=== PATIENT | male | born 1960 | race Caucasian/White ===

== ENCOUNTER 2020-03-26 09:07 | Emergency (ER) | payer OTHER, SELFPAY ==
[2020-03-26 09:10] VITALS: BP 176/87; PULSE 99; RESP 16; TEMP 36.4; O2SAT 100; BMI 42.2
--- NOTE | 2020-03-26 09:30 | ED.CHESTPAIN ---
HPI - Chest Pain General Chief Complaint: Chest Pain Stated Complaint: Dizzy/Anxious Time Seen by Provider: 03/26/20 09:20 Source: patient and family Mode of arrival: Ambulatory Limitations: no limitations History of Present Illness HPI narrative: 59-year-old male here for evaluation of what he thinks is a panic attack. Patient states he has never had a history of panic attacks or anxiety in the past. He states he went to bed last evening without any problems. Woke up this morning and his normal state health. 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 States that he was having some chest discomfort at the time but does not describe it as a pain. Potentially had some shortness of breath during the event but this has resolved. Had no nausea or vomiting. The time of my evaluation he states he feels much better but not completely back to normal again. Has not tried anything for symptoms prior to arrival. Related Data Home Medications Medication Instructions Recorded Confirmed cephalexin 500 mg PO QID 03/26/20 03/26/20 Allergies Allergy/AdvReac Type Severity Reaction Status Date / Time lisinopril Allergy Severe Cough Verified 03/26/20 09:28 Review of Systems Constitutional Constitutional: Denies fever(s) and Denies headache(s) ENT Ears, Nose, Mouth, and Throat: Denies headache(s) Cardiovascular Comments: Chest discomfort during his anxiety event earlier today Respiratory Comments: Shortness of breath during his anxiety event earlier today Gastrointestinal Gastrointestinal: Denies abdominal pain, Denies change in bowel habits, Denies diarrhea and Denies nausea Musculoskeletal Musculoskeletal: Denies arthralgias and Denies myalgias Integumentary/Breasts Skin/Breast: Denies rash Neurologic Neurologic: Denies headache(s) Psychiatric Psychiatric: Reports anxiety Hematologic/Lymphatic Hematologic/Lymphatic: Denies easy bleeding and Denies easy bruising Patient History Medical History Hypertension (Acute) Social History Smoking Status: Never smoker Smoking Status: Never smoker alcohol intake frequency: 0-2 drinks per day Substance Use Type: does not use Exam Initial Vital Signs Initial Vital Signs: Vital Signs Temperature 97.6 F 03/26/20 09:10 Pulse Rate 99 H 03/26/20 09:10 Respiratory Rate 16 03/26/20 09:10 Blood Pressure 176/87 H 03/26/20 09:10 Pulse Oximetry 100 03/26/20 09:10 Const General: cooperative, comfortable, well developed and well groomed Limitations: mental status not altered HENMT Head: normal to inspection and normocephalic Resp Effort & Inspection: normal respiratory effort Auscultation: clear to auscultation bilaterally Cardio Rate: regular rate Rhythm: regular rhythm GI Inspection: non-distended Palpation: soft and No tender Skin Lesions: no lesions Rashes: no rashes Neuro General: patient alert, patient awake and patient oriented x3 Cognition: normal cognition Speech: speech normal Extrem General: normal to inspection and capillary refill normal Psych Appearance: grossly normal and well kempt Scores GCS [place] coma scale eye opening: Spontaneous [place] coma scale verbal response: Orientated [place] coma scale motor response: Obey commands [place] coma scale total score: 15 HEART Score Heart Score history: Slightly Suspicious Heart Score EKG: Normal Heart Score Age: 45-64 years old Heart Score risk factors: 1-2 risk factors Heart Score troponin: < or = to normal limit Heart Score Total: 2 Course Orders Ordered: ED Orders 03/26/20 09:20 EKG-12 Lead Stat 03/26/20 09:52 Complete Blood Count AUTO DIFF Stat Comprehensive Metabolic Panel Stat Lipase Stat Troponin I Stat Vital Signs Vital signs: Vital Signs - 8 hr 03/26/20 09:10 Temperature 97.6 F Pulse Rate 99 H Respiratory Rate 16 Blood Pressure 176/87 H Pulse Oximetry 100 MDM - Chest Pain Lab Data Attestation: I reviewed the patient's lab results. Result diagrams: 03/26/20 09:52 03/26/20 09:52 Labs: Lab Results 03/26/20 03/26/20 Range/Units 09:52 09:52 WBC 6.1 (4.5-11.0) X10^3/uL RBC 4.31 L (4.5-5.9) X10^6/uL Hgb 13.2 L (13.5-17.5) g/dL Hct 38.4 L (41-53) % MCV 89.2 (80-100) fL MCH 30.7 (26-34) PG MCHC 34.4 (30-36) % RDW 13.4 (11.6-14.8) % Plt Count 168 (150-400) X10^3/uL Neut % (Auto) 77.9 H (50-75) % Lymph % (Auto) 14.9 L (25-40) % [place] % (Auto) 4.4 (3-14) % Eos % (Auto) 2.2 (2-4) % Baso % (Auto) 0.6 (0-2) % Neut # (Auto) 4700 (8029-2550) /uL Lymph # (Auto) 900 L (7703-5287) /uL [place] # (Auto) 300 (0-900) /uL Eos # (Auto) 100 (0-450) /uL Baso # (Auto) 0 (0-100) /uL Sodium 139 (137-145) mmol/L Potassium 4.4 (3.4-5.1) mmol/L Chloride 107 (98-107) mmol/L Carbon Dioxide 24 (22-32) mmol/L BUN 18 (9-20) mg/dL Creatinine 0.87 (0.66-1.25) mg/dL Estimated GFR > 60.0 (>60) mL/min BUN/Creatinine Ratio 20.7 (6-22) Glucose 109 H (70-100) mg/dL Calcium 9.2 (8.4-10.2) mg/dL Total Bilirubin 0.6 (0.2-1.3) mg/dL AST 30 (17-59) IU/L ALT 26 (<50) IU/L Alkaline Phosphatase 73 (38-126) U/L Troponin I < 0.012 (0.01-0.034) ng/mL Total Protein 7.4 (6.3-8.2) g/dL Albumin 4.4 (3.5-5.0) g/dL Globulin 3.0 (1.7-4.1) g/dL Albumin/Globulin Ratio 1.5 (1.0-2.8) Lipase 56 (23-300) U/L ECG Data Attestation: I personally reviewed and interpreted this ECG as follows: Prior ECG tracings: not available for review Interpretation: Sinus rhythm Ventricular rate of 91 Normal axis Normal QRS Normal QTC No ST T wave changes MDM Narrative Medical decision making narrative: Patient is a low risk heart score. Was slightly hypertensive which improved being here in the ER however rest of his vital signs are unremarkable. EKG is unremarkable. Low suspicion for ACS. Low suspicion for CVA. Nonfocal neurologic exam. Upon further questioning he did admit that last evening he drinks some wine which he normally does not do. He has no prior history of anxiety or panic attacks however his presenting symptoms today are fairly consistent with this. A long discussion with him and his at bedside regarding the situation. I feel we can hold on further workup for now. Patient is safe for discharge home. Will have him contact his primary provider for follow-up. He was given strict return precautions and follow-up instructions. He expressed understanding and agreement. Discharge Plan Departure Patient Disposition: Home Clinical Impression: Anxiety Instructions: DI for Anxiety -- Adult Activity Restrictions/Additional Instructions: Complete the antibiotics as directed. You have no restrictions on any of your activities. I do recommend that you refrain from drinking alcohol for the next 24-48 hours. Return to the emergency department for any new or worsening symptoms. Prescriptions: No Action cephalexin 500 mg capsule 500 mg PO QID RF: 0
[2020-03-26 10:00] VITALS: BP 174/78; PULSE 78; RESP 19; O2SAT 98
[2020-03-26 10:07] LABS: Add Manual Diff / Slide Review NO; Basophils Absolute Auto 0 /uL (0-100); Basophils Percent Auto 0.6 % (0-2); Eosinophils Absolute Auto 100 /uL (0-450); Eosinophils Percent Auto 2.2 % (2-4); Hematocrit 38.4 % (41-53); Hemoglobin 13.2 g/dL (13.5-17.5); Lymphocytes Absolute Auto 900 /uL (1100-4500); Lymphocytes Percent Auto 14.9 % (25-40); Mean Corpuscular HGB Conc 34.4 % (30-36); Mean Corpuscular Hemoglobin 30.7 PG (26-34); Mean Corpuscular Volume 89.2 fL (80-100); Monocytes Absolute Auto 300 /uL (0-900); Monocytes Percent Auto 4.4 % (3-14); Neutrophils Absolute Auto 4700 /uL (1500-7000); Neutrophils Percent Auto 77.9 % (50-75); Platelet Count 168 X10^3/uL (150-400); Red Blood Cell Count 4.31 X10^6/uL (4.5-5.9); Red Cell Distribution Width 13.4 % (11.6-14.8); White Blood Cell Count 6.1 X10^3/uL (4.5-11.0)
[2020-03-26 10:14] LABS: Alanine Aminotransferase 26 IU/L (<50); Albumin 4.4 g/dL (3.5-5.0); Albumin Globulin Ratio 1.5 (1.0-2.8); Alkaline Phosphatase 73 U/L (38-126); Aspartate Aminotransferase 30 IU/L (17-59); BUN Creatinine Ratio 20.7 (6-22); Bilirubin Total 0.6 mg/dL (0.2-1.3); Blood Urea Nitrogen 18 mg/dL (9-20); Calcium 9.2 mg/dL (8.4-10.2); Carbon Dioxide 24 mmol/L (22-32); Chloride 107 mmol/L (98-107); Estimated Glomerular Filt Rate > 60.0 mL/min (>60); Glucose 109 mg/dL (70-100); HEMOLYSIS < 15 (0-50); Lipase 56 U/L (23-300); Potassium 4.4 mmol/L (3.4-5.1); Sodium 139 mmol/L (137-145); Total Protein 7.4 g/dL (6.3-8.2)
[2020-03-26 10:26] LABS: Troponin I < 0.012 ng/mL (0.01-0.034)
[2020-03-26 10:30] VITALS: BP 166/82; PULSE 77; RESP 15; O2SAT 98
== END 2020-03-26 11:13 | disposition home or self-care (01) ==
PROVIDERS: Emergency Provider Emergency Medicine
DX: F41.9 Anxiety disorder, unspecified (principal); R06.02 Shortness of breath; R07.9 Chest pain, unspecified
CPT/HCPCS: 36415; 80053; 83690; 84484; 85025; 93005; 99284

== ENCOUNTER 2020-04-11 20:39 | Observation (INO) | payer OTHER, SELFPAY ==
[2020-04-11 20:53] VITALS: BP 207/96; PULSE 62; RESP 18; TEMP 36.8; O2SAT 97
--- NOTE | 2020-04-11 21:22 | ED.EXTPRO ---
HPI - Extremity Problem General Chief complaint: Neuro Symptoms/Deficit Stated complaint: numbnessleft side-knee, hand, foot, face Time Seen by Provider: 04/11/20 21:01 Source: patient Mode of arrival: Ambulatory Limitations: no limitations History of Present Illness HPI Narrative: 59-year-old male who denies any other medical problems here for evaluation of symptoms that initially occurred when he woke up this morning. Patient states that went to bed last evening feeling well. Woke up this morning with tingling in his left foot and on the outside of his left knee in in his left upper extremity and also tingling around the left side of his mouth. There is also some report spine the patient and his that this morning he was also having problems with how fast he was speaking. He states he was not slurring his words. Patient states that he knew what he wanted to say it just took him longer to say it. For the patient and his his symptoms have improved somewhat but not completely resolved. He denied any other associated symptoms. Has not tried anything for symptoms prior to arrival. Patient's said that the speaking issues that he had this morning are potentially not new for him. She states that when he drinks alcohol or is very tired he speaks slowly. Related Data Home Medications Medication Instructions Recorded Confirmed hydroxyzine HCl 25 mg PO DAILY PRN 04/11/20 04/11/20 atorvastatin 20 mg PO BEDTIME 04/12/20 04/12/20 Allergies Allergy/AdvReac Type Severity Reaction Status Date / Time lisinopril Allergy Severe Cough Verified 03/26/20 09:28 Review of Systems Constitutional Constitutional: Denies chills, Denies fatigue, Denies fever(s), Denies headache(s) and Denies weakness Eyes Eyes: Denies blurry vision, Denies change in vision and Denies diplopia ENT Ears, Nose, Mouth, and Throat: Denies vertigo, Denies dizziness, Denies headache(s), Denies disequilibrium, Denies sinus pain and Denies sore throat Cardiovascular Cardiovascular: Denies chest pain, Denies rapid heart rate and Denies dyspnea Respiratory Respiratory: Denies cough and Denies dyspnea Gastrointestinal Gastrointestinal: Denies abdominal pain, Denies change in bowel habits, Denies diarrhea, Denies nausea and Denies vomiting Genitourinary Genitourinary: Denies dysuria Genitourinary: Denies dysuria Musculoskeletal Musculoskeletal: Denies arthralgias, Denies myalgias and Reports tingling Integumentary/Breasts Skin/Breast: Denies lesions and Denies rash Neurologic Neurologic: Denies abnormal movements, Reports abnormal speech, Denies behavioral changes, Denies vertigo, Denies dizziness, Denies headache(s), Denies restless legs, Reports sensory deficit, Reports tingling, Denies disequilibrium and Denies weakness Psychiatric Psychiatric: Denies behavioral changes Endocrine Endocrine: Denies fatigue Hematologic/Lymphatic Hematologic/Lymphatic: Denies easy bleeding and Denies easy bruising Allergic/Immunologic Allergic/Immunologic: Denies urticaria Patient History Medical History Anxiety (Acute) Dyslipidemia (Acute) Hypertension (Acute) Surgical History History of hernia repair (Acute) History of tonsillectomy (Acute) Family History Father Leyva's disease Impaired vision Mother Cancer Brother Cancer Sister Myocardial infarction Son Asthma Social History household members: spouse and children Smoking Status: Never smoker alcohol intake: current Smoking Status: Never smoker alcohol intake frequency: 0-2 drinks per day Substance Use Type: marijuana Exam Initial Vital Signs Initial Vital Signs: Vital Signs Temperature 98.2 F 04/11/20 20:53 Pulse Rate 62 04/11/20 20:53 Respiratory Rate 18 04/11/20 20:53 Blood Pressure 207/96 H 04/11/20 20:53 Pulse Oximetry 97 04/11/20 20:53 Const General: cooperative, comfortable, well developed, well groomed and No acute distress Limitations: mental status not altered HENDE Head: normal to inspection and normocephalic Ears: hearing grossly normal bilaterally Eyes Pupils: PERRL EOM: EOM intact bilaterally Neck Neck: no meningeal signs Resp Effort & Inspection: normal respiratory effort Auscultation: clear to auscultation bilaterally Cardio Rate: regular rate Rhythm: regular rhythm GI Inspection: non-distended Palpation: soft, No firm and No tender Back/Spine/Pelvis Back: normal to inspection Skin Lesions: no lesions Rashes: no rashes Neuro General: patient alert, patient awake and patient oriented x3 Cognition: normal cognition Speech: speech normal Gait: normal gait Motor: muscle tone normal throughout Coordination: [id number] test normal Extrem General: normal to inspection and capillary refill normal Psych Appearance: grossly normal and well kempt Scores GCS [place] coma scale eye opening: Spontaneous [place] coma scale verbal response: Orientated [place] coma scale motor response: Obey commands [place] coma scale total score: 15 NIH Stroke Scale Level of Conciousness: Alert, keenly responsive Ask month/age: Answers both questions correctly. Open/close eyes, close hand: Performs both tasks correctly Best gaze horizontal: Normal Visual sharp: No visual loss Facial palsy: Normal symetrical movement Left arm drift: No drift for full 10 sec Right arm drift: No drift for full 10 sec Left leg drift: Drifts down, not to bed Right leg drift: No drift for full 10 sec Limb ataxia: Absent Sensory on face/arms/legs: Mild to moderate sensory loss, can tell touch Best language: No aphasia, normal Dysarthria: Normal Extinction or inattention: No abnormality Total NIH Stroke scale score: 2 Course Orders Ordered: ED Orders 04/11/20 21:23 CT head/brain wo con Stat EKG-12 Lead Stat 04/11/20 21:30 Complete Blood Count AUTO DIFF Stat Comprehensive Metabolic Panel Stat Ethanol (ETOH) Stat Lipase Stat Magnesium Routine Partial Thromboplastin Time Stat Prothrombin Time INR Stat Troponin I Stat 04/11/20 23:07 Consult to Discharge Planning Routine Consult to Occupational Therapy Evaluate & Treat Consult to Physical Therapy Evaluate & Treat MR stroke Stat Education, smoking cessation ONGOING 04/11/20 23:10 EC echo doppler complete Routine 04/12/20 05:00 Basic Metabolic Panel Routine Complete Blood Count AUTO DIFF Routine Hemoglobin A1C% w Est Avg Glu Routine Lipid Panel Routine Thyroid Stimulating Hormone Routine Acetaminophen (Tylenol) 650 mg PO Q6HR PRN PRN Reason: Fever/Mild Pain (1-3) Al Hydrox/Mg Hydrox/Simethicone (Maalox Plus) 30 ml PO Q6HR PRN PRN Reason: Dyspepsia Aspirin (Aspirin Ec) 81 mg PO DAILY [facility] Atorvastatin Calcium (Lipitor) 20 mg PO BEDTIME [facility] Bisacodyl (Dulcolax) 10 mg PO DAILY PRN PRN Reason: Constipation Calcium Carbonate (Tums) 1,000 mg PO Q4HR PRN PRN Reason: Dyspepsia Enoxaparin Sodium (Lovenox) 40 mg SUBCUT DAILY [facility] Hydroxyzine Pamoate (Vistaril) 25 mg PO DAILY PRN PRN Reason: Anxiety Sodium Chloride (Normal Saline 0.9%) 1,000 mls @ 75 mls/hr IV CONT [facility] Last Admin: 04/12/20 00:42 Dose: 100 mls/hr Documented by: PALOMO Naloxone HCl (Narcan) 0.2 mg IV Q2MIN PRN PRN Reason: Opiate Reversal Ondansetron HCl (Zofran) 4 mg IV Q8HR PRN PRN Reason: Nausea And Vomiting Discontinued Medications Aspirin (Aspirin Chew) 324 mg PO NOW ONE Stop: 04/11/20 22:45 Last Admin: 04/11/20 22:50 Dose: 324 mg Documented by: CASEY Atorvastatin Calcium (Lipitor) 20 mg PO BEDTIME [facility] Vital Signs Vital signs: Vital Signs - 8 hr 04/11/20 21:35 04/11/20 21:59 04/11/20 22:46 Pulse Rate 60 58 L 60 Respiratory Rate 18 18 18 Blood Pressure [Left Arm] 180/84 H 142/68 H 134/70 Pulse Oximetry 98 97 95 04/11/20 23:25 Pulse Rate 68 Respiratory Rate 18 Blood Pressure [Left Arm] 142/72 H Pulse Oximetry 96 MDM - Extremity (Nontraumatic) Lab Data Result diagrams: 04/11/20 21:30 04/11/20 21:30 Labs: Lab Results 04/11/20 04/11/20 04/11/20 Range/Units 21:30 21:30 21:30 WBC 5.6 (4.5-11.0) X10^3/uL RBC 4.52 (4.5-5.9) X10^6/uL Hgb 13.6 (13.5-17.5) g/dL Hct 40.1 L (41-53) % MCV 88.7 (80-100) fL MCH 30.0 (26-34) PG MCHC 33.8 (30-36) % RDW 13.4 (11.6-14.8) % Plt Count 155 (150-400) X10^3/uL Neut % (Auto) 66.7 (50-75) % Lymph % (Auto) 24.9 L (25-40) % [place] % (Auto) 5.8 (3-14) % Eos % (Auto) 2.0 (2-4) % Baso % (Auto) 0.6 (0-2) % Neut # (Auto) 3800 (0841-9364) /uL Lymph # (Auto) 1400 (9162-9629) /uL [place] # (Auto) 300 (0-900) /uL Eos # (Auto) 100 (0-450) /uL Baso # (Auto) 0 (0-100) /uL PT 11.9 (10.1-12.7) SECONDS INR 1.0 (0.9-1.3) APTT 34 (26.4-36.2) SECONDS Sodium 138 (137-145) mmol/L Potassium 3.9 (3.4-5.1) mmol/L Chloride 105 (98-107) mmol/L Carbon Dioxide 22 (22-32) mmol/L BUN 21 H (9-20) mg/dL Creatinine 0.77 (0.66-1.25) mg/dL Estimated GFR > 60.0 (>60) mL/min BUN/Creatinine Ratio 27.3 H (6-22) Glucose 131 H (70-100) mg/dL Calcium 9.1 (8.4-10.2) mg/dL Magnesium (1.6-2.3) mg/dL Total Bilirubin 0.6 (0.2-1.3) mg/dL AST 31 (17-59) IU/L ALT 23 (<50) IU/L Alkaline Phosphatase 60 (38-126) U/L Troponin I < 0.012 (0.01-0.034) ng/mL Total Protein 7.0 (6.3-8.2) g/dL Albumin 4.3 (3.5-5.0) g/dL Globulin 2.7 (1.7-4.1) g/dL Albumin/Globulin Ratio 1.6 (1.0-2.8) Lipase 48 (23-300) U/L Ethyl Alcohol ( - 10) mg/dL 04/11/20 04/11/20 Range/Units 21:30 21:30 WBC (4.5-11.0) X10^3/uL RBC (4.5-5.9) X10^6/uL Hgb (13.5-17.5) g/dL Hct (41-53) % MCV (80-100) fL MCH (26-34) PG MCHC (30-36) % RDW (11.6-14.8) % Plt Count (150-400) X10^3/uL Neut % (Auto) (50-75) % Lymph % (Auto) (25-40) % [place] % (Auto) (3-14) % Eos % (Auto) (2-4) % Baso % (Auto) (0-2) % Neut # (Auto) (2846-6202) /uL Lymph # (Auto) (8921-6785) /uL [place] # (Auto) (0-900) /uL Eos # (Auto) (0-450) /uL Baso # (Auto) (0-100) /uL PT (10.1-12.7) SECONDS INR (0.9-1.3) APTT (26.4-36.2) SECONDS Sodium (137-145) mmol/L Potassium (3.4-5.1) mmol/L Chloride (98-107) mmol/L Carbon Dioxide (22-32) mmol/L BUN (9-20) mg/dL Creatinine (0.66-1.25) mg/dL Estimated GFR (>60) mL/min BUN/Creatinine Ratio (6-22) Glucose (70-100) mg/dL Calcium (8.4-10.2) mg/dL Magnesium 2.0 (1.6-2.3) mg/dL Total Bilirubin (0.2-1.3) mg/dL AST (17-59) IU/L ALT (<50) IU/L Alkaline Phosphatase (38-126) U/L Troponin I (0.01-0.034) ng/mL Total Protein (6.3-8.2) g/dL Albumin (3.5-5.0) g/dL Globulin (1.7-4.1) g/dL Albumin/Globulin Ratio (1.0-2.8) Lipase (23-300) U/L Ethyl Alcohol < 10 ( - 10) mg/dL Imaging Data CT scan - head: Radiologist's Impression: [address] [address] [address] Scan Report Signed Patient: Sundeep Srinivasan WMR#: [id number] : 1960Acct:[id number] Age/Sex: 59 / MDate of Service: 04/11/20 Loc: ED Accession Number: [id number] Procedure: CT head/brain wo con Ordering Provider: Abelardo Lopez D.O. PROCEDURE: CT HEAD/BRAIN WO CON INDICATIONS: possible TIA TECHNIQUE: Noncontrast 4.5 mm thick angled axial sections acquired from the foramen magnum to the vertex, with coronal and sagittal reformats. For radiation dose reduction, the following was used: automated exposure control, adjustment of mA and/or kV according to patient size. COMPARISON: None. FINDINGS: Image quality: Excellent. CSF spaces: Basal cisterns are patent. No extra-axial fluid collections. Ventricles are normal in size and shape. Brain: No midline shift. No intracranial masses or hemorrhage. Green-white matter interface is normal. Skull and face: Calvarium and visualized facial bones are intact, without suspicious lesions. Sinuses: Visualized sinuses and mastoids are clear. IMPRESSION: No trauma, no evidence of stroke, no intracranial hemorrhage or mass is identified. Dictated by: Sharath Winters M.D. on 04/11/2020 at 21:49 Approved by: Sharath Winters M.D. on 04/11/2020 at 21:49 ECG Data Attestation EKG: I personally reviewed and interpreted this ECG as follows: Prior ECG tracings: not available for review Interpretation: Sinus bradycardia Ventricular rate of 54 Normal axis Normal QRS Normal QTC No ST T wave changes MDM Narrative Medical decision making narrative: Last known normal was last evening before he went to bed. Woke up this morning with his symptoms. Some of his symptoms have improved/resolved however still has some left-sided tingling. NIH score of 2. Head CT was unremarkable. Labs unremarkable. Discuss this with the patient. We did discuss CVA versus TIA. Patient not a candidate for tPA. Low suspicion for large vessel occlusion given his physical exam. Discussed the case with DOUG Early the night hospitalist who will admit for further evaluation and treatment. Discussed this with the patient. He expressed understanding and agreement. Discharge Plan Departure Patient Disposition: Admitted as Observation Clinical Impression: Transient cerebral ischemia Qualifiers: Transient cerebral ischemia type: unspecified Qualified Code(s): G45.9 - Transient cerebral ischemic attack, unspecified Hypertension Qualifiers: Hypertension type: unspecified Qualified Code(s): I10 - Essential (primary) hypertension Discharge Date/Time: 04/12/20 00:05 Admit Date/Time: 04/11/20 23:50 Admit Provider: Bobo Early
--- NOTE | 2020-04-11 21:23 | PC.NURSE ---
Reports feeling numbness in left upper lip, left fingers and left knee. Also reports feeling weaker in left knee. states his speech seemed/seems slow. Reports onset of symptoms at 0630 today upon awakening.
[2020-04-11 21:35] VITALS: BP 180/84; PULSE 60; RESP 18; O2SAT 98
[2020-04-11 21:58] LABS: Add Manual Diff / Slide Review NO; Basophils Absolute Auto 0 /uL (0-100); Basophils Percent Auto 0.6 % (0-2); Eosinophils Absolute Auto 100 /uL (0-450); Hematocrit 40.1 % (41-53); Hemoglobin 13.6 g/dL (13.5-17.5); Lymphocytes Absolute Auto 1400 /uL (1100-4500); Lymphocytes Percent Auto 24.9 % (25-40); Mean Corpuscular HGB Conc 33.8 % (30-36); Mean Corpuscular Volume 88.7 fL (80-100); Monocytes Absolute Auto 300 /uL (0-900); Monocytes Percent Auto 5.8 % (3-14); Neutrophils Absolute Auto 3800 /uL (1500-7000); Neutrophils Percent Auto 66.7 % (50-75); Platelet Count 155 X10^3/uL (150-400); Red Blood Cell Count 4.52 X10^6/uL (4.5-5.9); Red Cell Distribution Width 13.4 % (11.6-14.8); White Blood Cell Count 5.6 X10^3/uL (4.5-11.0)
[2020-04-11 21:59] VITALS: BP 142/68; PULSE 58; RESP 18; O2SAT 97
[2020-04-11 22:03] LABS: Prothrombin Time 11.9 SECONDS (10.1-12.7)
[2020-04-11 22:06] LABS: PTT Partial Thromboplastin Tim 34 SECONDS (26.4-36.2)
[2020-04-11 22:08] LABS: Ethanol (ETOH) < 10 mg/dL
[2020-04-11 22:09] LABS: Alanine Aminotransferase 23 IU/L (<50); Albumin 4.3 g/dL (3.5-5.0); Albumin Globulin Ratio 1.6 (1.0-2.8); Alkaline Phosphatase 60 U/L (38-126); Aspartate Aminotransferase 31 IU/L (17-59); BUN Creatinine Ratio 27.3 (6-22); Bilirubin Total 0.6 mg/dL (0.2-1.3); Blood Urea Nitrogen 21 mg/dL (9-20); Calcium 9.1 mg/dL (8.4-10.2); Carbon Dioxide 22 mmol/L (22-32); Chloride 105 mmol/L (98-107); Estimated Glomerular Filt Rate > 60.0 mL/min (>60); Globulin 2.7 g/dL (1.7-4.1); Glucose 131 mg/dL (70-100); HEMOLYSIS < 15 (0-50); Lipase 48 U/L (23-300); Potassium 3.9 mmol/L (3.4-5.1); Sodium 138 mmol/L (137-145)
[2020-04-11 22:20] LABS: Troponin I < 0.012 ng/mL (0.01-0.034)
[2020-04-11 22:46] VITALS: BP 134/70; PULSE 60; RESP 18; O2SAT 95
[2020-04-11] MEDS: ASPIRIN 81 MG CHEW TAB 324 MG PO (22:50)
--- NOTE | 2020-04-11 23:07 | DI.MRI.S_ITS ---
PROCEDURE: MR STROKE Pre- and post-contrast brain MRI, non-contrast brain MR angiogram, pre- and postcontrast neck MR angiogram INDICATIONS: Left-sided numbness and tingling TECHNIQUE: Brain: Noncontrast axial T1 spin echo, axial T2 fast spin echo, sagittal and axial FLAIR, coronal T2 fast spin echo, axial gradient echo, axial diffusion and ADC through the brain. After the administration of contrast, axial 3D VIBE of the cranial vasculature and brain. Brain MRA: Non-contrast 3-D time of flight MR angiogram, with multiple lklqxnn-qgujrcxle-pxwwqskjjc (MIP) reformats performed. Neck MRA: Axial and sagittal TruFISP through the neck. Coronal dynamic MR angiogram during administration of contrast in the arterial and venous phases, with 3-dimenstional lcoyzwp-dmxqcmkhy-hflhisenwy (MIP) reformats constructed from subtraction images. COMPARISON: [facility], CT, CT HEAD/BRAIN WO CON, 04/11/2020, 21:23. FINDINGS: Image quality: Diagnostic, with note made of motion artifact. BRAIN: CSF spaces: Ventricles are normal in size and shape. Basal cisterns are patent. No extra-axial fluid collections. Brain: There is abnormal diffusion weighted signal seen within the saadia, just to the right of the midline, as on series 20 images 57 and 58. There is associated dark signal seen on ADC maps. Developing increased T2-weighted signal can be seen at this site. No intracranial bleeds or mass effects. Green-white matter interface is normal. Mild brain parenchymal volume loss is seen in scattered foci of T2 weighted hyperintensity can be seen within the periventricular deep white matter. A few juxtacortical white matter foci are also seen. There is potential involvement of the undersurface of the corpus callosum. These foci do not enhance. Normal intravascular flow voids are present. No abnormal intracranial enhancement. Skull and face: Calvarial marrow signal is normal. Orbits appear normal. Sinuses: Sinuses and mastoids are clear. BRAIN MR ANGIOGRAM: Anterior circulation: Intracranial internal carotid arteries are normal in size and enhancement. The flow within the paired anterior cerebral arteries is normal and symmetric. The flow within the middle cerebral arteries is normal and symmetric. The anterior communicating artery is seen. No stenoses, occlusions, or aneurysms. Posterior circulation: The visualized portions of the vertebral arteries demonstrate normal caliber, and join to form a normal appearing basilar artery. The flow within the posterior cerebral arteries is normal and symmetric. No stenoses, occlusions, or aneurysms. NECK MR ANGIOGRAM: Carotids: Great vessels demonstrate a conventional anatomy as they arise from the aortic arch. The origins of the common carotid arteries appear patent. The calibers and courses of both common carotid arteries are normal. The bifurcation regions appear normal bilaterally. The internal carotid arteries demonstrate normal course and caliber. Posterior circulation: The origins of the vertebral arteries appear patent. More superior portions of both vertebral arteries demonstrate normal course and caliber, and join to form a normal appearing basilar artery. Miscellaneous: Subclavian arteries appear patent. Pre-contrast images through the neck show no soft tissue abnormalities. IMPRESSION: BRAIN MRI: There is a subacute infarction seen involving the right saadia near the midline. Numerous foci of T2 weighted hyperintensity can be seen within the white matter. Although in a male patient of this age chronic small vessel ischemia is considered to be less likely, please consider a demyelinating process, including multiple sclerosis. No masses or abnormal enhancement can be seen. BRAIN MR ANGIOGRAM: No significant intracranial arterial abnormality can be seen. NECK MR ANGIOGRAM: Within the arteries of the neck, no hemodynamically significant stenosis can be seen. Dictated by: Klever Pacheco M.D. on 04/12/2020 at 10:42 Approved by: Klever Pacheco M.D. on 04/12/2020 at 10:47
[2020-04-11 23:25] VITALS: BP 142/72; PULSE 68; RESP 18; O2SAT 96
--- NOTE | 2020-04-11 23:36 | PC.NURSE ---
The Hospitalist Edilson is in with his exam.
--- NOTE | 2020-04-12 00:02 | P.HP_ITS ---
History of Present Illness History of Present Illness Date Patient Seen: 04/11/20 Time Patient Seen: 23:45 Chief complaint: numbnessleft side-knee, hand, foot, face Narrative: Mr. Sundeep Srinivasan is a 59-year-old male with a past medical history significant for hypertension for which is no longer taking medication, hyperlipidemia on atorvastatin and anxiety who presents to the emergency department with left-sided numbness. The patient states that he was in his usual state health when he went to bed and woke this morning with left-sided tingling of his face, hand and leg. His also comments that he was slow to respond but had no difficulty word finding. She further states that he has had similar problems before when he is tired or have sad alcohol. Patient denies complaints of headaches or dizziness and has had visual changes. He reports no difficulty chewing or swallowing or problems with word finding. The patient was seen in the ER 2 weeks ago when kidney woke in the morning and developed anxiety and reported difficulties doing tasks with mid chest discomfort and possible associated shortness of breath. At that time he had no nausea vomiting no diaphoresis or headache. Of the aforementioned episode the patient has had no other complaints of pain or problems and has had no fevers or chills and denies any known COVID-19 exposures. Today he has had no complaints of chest pain or palpitations, shortness of breath cough or wheezing. He denies epigastric or abdominal pain and has had no nausea vomiting and denies constipation or diarrhea. Reports no difficulty with urination. Upon arrival to the ER the patient has a temperature 98.2? heart rate of 62, blood pressure 207/96, respirations of 18 saturating 97% on room air. A CT of the head is obtained finding no trauma, no evidence of stroke, intercerebral hemorrhage or mass. An EKG is obtained which finds sinus bradycardia with rate of 54 without ectopy or block, ischemia or infarct. On laboratory analyses white count of 5.6, hemoglobin 13.6, hematocrit of 40.1, platelets 155. He has a PT of 11.9 with an INR 1.0 and PTT of 34. His electrolytes are all within normal range and he has a BUN of 21 and creatinine 0.77. His BUN creatinine ratio of 27.3. His nonfasting blood sugar is 131. His liver functions are all within normal limits and his albumin is 4.3. His troponin is negative at less than 0.012 and alcohol is less than 10. Patient is given aspirin 324 mg in the ER and while there is numbness and tingling has been improving. The patient is admitted to the medicine service for further evaluation of TIA. Patient History Medical History Anxiety (Acute) Dyslipidemia (Acute) Hypertension (Acute) Surgical History History of hernia repair (Acute) History of tonsillectomy (Acute) Family & Social History Family History (Updated 04/12/20 @ 00:18 by DANIELLE Barber) Father Leyva's disease Impaired vision Mother Cancer Brother Cancer Sister Myocardial infarction Son Asthma Safety & Behavioral: Feels Safe in Current Yes Environment Tobacco & Substance use: Smoking Status Never smoker alcohol intake frequency 0-2 drinks per day Substance Use Type marijuana Comment: The patient is and lives in a single family home. 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 Alcohol: Patient endorses 1 drink every few weeks. Substance use: The patient endorses uses CBD cream that he applies to his knees. Advanced directives: In direct discussion with the patient he states his desire to be FULL CODE. He designates his Ashely Abbott to be his surrogate decision maker. Meds Home Medications and Allergies Home Medications Medication Instructions Recorded Confirmed Type hydroxyzine HCl 25 mg PO DAILY PRN 04/11/20 04/11/20 History atorvastatin 20 mg PO BEDTIME 04/12/20 04/12/20 History Allergies Allergy/AdvReac Type Severity Reaction Status Date / Time lisinopril Allergy Severe Cough Verified 03/26/20 09:28 Review of Systems Review of Systems ROS: Yes All systems reviewed with the patient and are negative except as otherwise documented Exam Vital Signs (past 8 hours): - 04/11/20 20:53 04/11/20 21:35 04/11/20 21:59 Temperature 98.2 F Pulse Rate 62 60 58 L Respiratory Rate 18 18 18 Blood Pressure 207/96 H Blood Pressure [Left Arm] 180/84 H 142/68 H Pulse Oximetry 97 98 97 04/11/20 22:46 04/11/20 23:25 Temperature Pulse Rate 60 68 Respiratory Rate 18 18 Blood Pressure Blood Pressure [Left Arm] 134/70 142/72 H Pulse Oximetry 95 96 Oxygen Delivery Method Room Air Narrative Exam Narrative: GENERAL APPEARANCE: well developed, obese male lying semi recumbent on stretcher in no acute distress. HEENT: Symmetrical facies, no ptosis, PERRLA, conjunctiva clear, sclerae anicteric, EOMs intact without nystagmus, no sinus tenderness to percussion, no rhinorrhea, mucous membranes are moist and pink without lesions or exudate. NECK/THYROID: neck supple, nontender, no JVD, no carotid bruit, no thyromegaly, trachea midline. LYMPH NODES: no cervical or supraclavicular lymphadenopathy. SKIN: [place], warm and dry, no visible lesions, rashes, ulcerations or petechiae. HEART: Bradycardic rate and regular rhythm, S1-S2, no murmur, no rubs or gallops, brisk capillary refill, no edema LUNGS: clear to auscultation bilaterally, no coarseness crackles or wheezing, no cough present CHEST: Symmetrical movement, no accessory muscle use, good tidal volume. ABDOMEN: Soft, obese, no epigastric or abdominal tenderness, no organomegaly, no flank tenderness, active bowel tones. EXTREMITIES: moves all extremities, strength is 5/5 and symmetrical, no deformities or joint effusions. NEUROLOGIC: AAO x4, cranial nerves II-XII grossly intact, NIH score is 1 for persistent altered sensation left finger tips, hearing grossly normal to speech. PSYCH: Reserved, flat affect, cooperative Objective Labs Result Diagrams: 04/11/20 21:30 04/11/20 21:30 Labs: Laboratory Results - last 24 hr 04/11/20 04/11/20 04/11/20 21:30 21:30 21:30 WBC 5.6 RBC 4.52 Hgb 13.6 Hct 40.1 L MCV 88.7 MCH 30.0 MCHC 33.8 RDW 13.4 Plt Count 155 Neut % (Auto) 66.7 Lymph % (Auto) 24.9 L [place] % (Auto) 5.8 Eos % (Auto) 2.0 Baso % (Auto) 0.6 Neut # (Auto) 3800 Lymph # (Auto) 1400 [place] # (Auto) 300 Eos # (Auto) 100 Baso # (Auto) 0 PT 11.9 INR 1.0 APTT 34 Sodium 138 Potassium 3.9 Chloride 105 Carbon Dioxide 22 BUN 21 H Creatinine 0.77 Estimated GFR > 60.0 BUN/Creatinine Ratio 27.3 H Glucose 131 H Calcium 9.1 Magnesium Total Bilirubin 0.6 AST 31 ALT 23 Alkaline Phosphatase 60 Troponin I < 0.012 Total Protein 7.0 Albumin 4.3 Globulin 2.7 Albumin/Globulin Ratio 1.6 Lipase 48 Ethyl Alcohol 04/11/20 04/11/20 21:30 21:30 WBC RBC Hgb Hct MCV MCH MCHC RDW Plt Count Neut % (Auto) Lymph % (Auto) [place] % (Auto) Eos % (Auto) Baso % (Auto) Neut # (Auto) Lymph # (Auto) [place] # (Auto) Eos # (Auto) Baso # (Auto) PT INR APTT Sodium Potassium Chloride Carbon Dioxide BUN Creatinine Estimated GFR BUN/Creatinine Ratio Glucose Calcium Magnesium 2.0 Total Bilirubin AST ALT Alkaline Phosphatase Troponin I Total Protein Albumin Globulin Albumin/Globulin Ratio Lipase Ethyl Alcohol < 10 Assessment & Plan Assessment & Plan narrative: This is a 59-year-old male patient who presents to the ER with left-sided numbness and tingling. He will with his symptoms his last known normal was when he went to bed last night. 1. TIA with left-sided numbness and tingling, present on admission, improving. -patient without prior symptoms of paresthesias, patient woke with symptoms, last known normal was yesterday evening. -per the patient's patient had delayed responses without difficulty word finding which may or may not be new but are no longer present. -per ER physician the patient walked with a limp on admission than on NIH testing at left leg drift but not down to bed. -patient has an NIH score of 1 for altered sensation persisting in the left bai nd. -in the ER the patient received aspirin 324 mg, continue aspirin 81 mg daily. -will obtain a hemoglobin A1c and TSH for risk stratification. -obtain MR stroke protocol in the a.m. -obtain echocardiogram in the a.m. -PT and OT requested to consult, evaluate and treat. 2. Essential hypertension, present on admission, active. -the patient has a past history of hypertension but states he was taking off medication because his blood pressure improved. He does not monitor his blood pressure at home. -on presentation to the ER his blood pressure is 207/96 which is improved to 140 2/72 without intervention. -the patient had a previous episode 2 weeks ago of anxiety with chest tightness, and denies chest pain shortness of breath or headache. -Will monitor blood pressure and treat as needed. 3. Dyslipidemia, chronic, stable -will continue patient's home regimen of atorvastatin 20 mg daily. 4. Obstructive sleep apnea on CPAP, chronic, stable. -the patient's is bring in his CPAP machine. -respiratory therapy to consult, evaluate and treat. 5. Anxiety, stable. -the patient presently calm and cooperative. -will continue patient's home regimen of hydroxyzine as needed. Isolation: None VTE prophylaxis: SCDs, enoxaparin. IV fluid: Normal saline at 75 cc/hour. Diet: Heart healthy low-sodiuM. Code status: FULL CODE, patient's is surrogate decision maker. The patient is admitted to the hospital with diet TIA requiring additional evaluation and monitoring. The patient is admitted as observation status with expected length of stay to be less than 2 midnights. COVID-19 COVID-19 status: Not tested Time Spent With Patient Time with patient: 25 - 35 minutes Scores GCS Pete coma scale eye opening: Spontaneous [place] coma scale verbal response: Orientated [place] coma scale motor response: Obey commands [place] coma scale total score: 15 NIHSS Level of Conciousness: Alert, keenly responsive Ask month/age: Answers both questions correctly. Open/close eyes, close hand: Performs both tasks correctly Best gaze horizontal: Normal Visual sharp: No visual loss Facial palsy: Normal symetrical movement Left arm drift: No drift for full 10 sec Right arm drift: No drift for full 10 sec Left leg drift: No drift for full 5 sec Right leg drift: No drift for full 5 sec Limb ataxia: Absent Sensory on face/arms/legs: Mild to moderate sensory loss, can tell touch Best language: No aphasia, normal Dysarthria: Normal Extinction or inattention: No abnormality Total NIH Stroke scale score: 1
[2020-04-12 00:22] VITALS: BMI 41.4
[2020-04-12] MEDS: SODIUM CHLORIDE 0.9% 1,000 ML 100 ML IV (00:42)
[2020-04-12 01:01] VITALS: BP 142/69; PULSE 56; RESP 18; TEMP 36.6; O2SAT 99
--- NOTE | 2020-04-12 02:23 | PC.ADMIT ---
[id number] Admission Note: The patient,Sundeep Srinivasan,59 y/o, was given written information regarding hospital policies, unit procedures and contact persons. Patient's smoking status: Never smoker. Vital Signs - 8 hr 04/11/20 20:53 04/11/20 21:35 04/11/20 21:59 Temperature 98.2 F Pulse Rate 62 60 58 L Respiratory Rate 18 18 18 Blood Pressure 207/96 H Blood Pressure [Left Arm] 180/84 H 142/68 H Pulse Oximetry 97 98 97 04/11/20 22:46 04/11/20 23:25 04/12/20 01:01 Temperature 97.8 F Pulse Rate 60 68 56 L Respiratory Rate 18 18 18 Blood Pressure 142/69 H Blood Pressure [Left Arm] 134/70 142/72 H Pulse Oximetry 95 96 99 Patient arrive @ 0015 accompanied by ED RN in W/C, transferred self to inpatient bed without difficulty. No recent fall hx, slightly hypertensive, bradycardiac on tele (VOUCHER EXAMINER Notified), all other systems WNL. Initiated home CPAP therapy, saturating WNL on RA. No c/o pain. Acknowledged all teaching. Bed alarm on and functioning, call light purpose and function explained, in reach.
[2020-04-12 05:00] VITALS: BP 126/69; PULSE 44; RESP 18; TEMP 36.6; O2SAT 99
[2020-04-12 07:40] VITALS: BP 136/78; PULSE 55; RESP 18; TEMP 37; O2SAT 100
[2020-04-12 07:53] LABS: Add Manual Diff / Slide Review NO; Basophils Absolute Auto 0 /uL (0-100); Basophils Percent Auto 0.8 % (0-2); Eosinophils Absolute Auto 200 /uL (0-450); Hematocrit 38.2 % (41-53); Hemoglobin 13.2 g/dL (13.5-17.5); Lymphocytes Absolute Auto 1100 /uL (1100-4500); Lymphocytes Percent Auto 22.9 % (25-40); Mean Corpuscular HGB Conc 34.6 % (30-36); Mean Corpuscular Hemoglobin 30.7 PG (26-34); Mean Corpuscular Volume 88.7 fL (80-100); Monocytes Absolute Auto 300 /uL (0-900); Monocytes Percent Auto 6.9 % (3-14); Neutrophils Absolute Auto 3300 /uL (1500-7000); Neutrophils Percent Auto 66.4 % (50-75); Platelet Count 152 X10^3/uL (150-400); Red Cell Distribution Width 13.2 % (11.6-14.8)
[2020-04-12] MEDS: ENOXAPARIN 40 MG/0.4 ML SYRINGE SUBCUT (08:00)
[2020-04-12] MEDS: ASPIRIN EC 81 MG TABLET PO (08:00)
[2020-04-12 08:31] LABS: BUN Creatinine Ratio 23.8 (6-22); Blood Urea Nitrogen 19 mg/dL (9-20); Calcium 9.3 mg/dL (8.4-10.2); Carbon Dioxide 23 mmol/L (22-32); Chloride 108 mmol/L (98-107); Cholesterol 221 mg/dL (140-199); Estimated Glomerular Filt Rate > 60.0 mL/min (>60); Glucose 98 mg/dL (70-100); HDL Cholesterol 49 mg/dL (40-60); HEMOLYSIS < 15 (0-50); LDL Cholesterol Calculated 149 mg/dL (<100); Sodium 137 mmol/L (137-145); Triglycerides 113 mg/dL (35-150)
[2020-04-12 08:37] LABS: Hemoglobin A1C% w Est Avg Glu 5.4 % (4.0-6.0)
[2020-04-12 09:50] LABS: Thyroid Stimulating Hormone 2.76 uIU/mL (0.47-4.68)
--- NOTE | 2020-04-12 10:49 | PT.IIE ---
Surgical History (Last Reviewed 04/12/20 @ 05:06 by Abelardo Lopez DO) History of hernia repair (Acute) History of tonsillectomy (Acute) Medical History (Last Reviewed 04/12/20 @ 05:06 by Abelardo Lopez DO) Anxiety (Acute) Dyslipidemia (Acute) Hypertension (Acute) Physical Therapy Inpatient Evaluation/Re-Eval M1 PT/OT-IP Prior Functional Status Start: 04/12/20 10:22 Freq: NEEDED Status: Active Protocol: Document 04/12/20 10:22 HH ([email or web address] Medical Review Prior Functional Status Medical History Reviewed Yes Diet/Fluid Consistency Regular Communication able to make needs known. no deficits noted. Mobility and Gait Independent for all mobility without using AD Activities of Daily Living and IADL's independent for all ADLs and IADLs without AD Social History Household Members spouse,children Living Arrangements House Number of Floors (Floors) Two Floors Number of Stairs To Enter/Railing? daylight saving apt. Entrance on 2nd level with 10-12 steps down to 1st level. Pt does not go down to 1st level. 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 They both very independent and able to assist as needed. Pt works at a [employer] center for [employer]. M2 PT-IP Current Condition Start: 04/12/20 10:22 Freq: NEEDED Status: Active Protocol: Document 04/12/20 10:22 HH (Rec: 04/12/20 10:49 [email or web address]) Physical Therapy Current Condition Current Condition Evaluation Date 04/12/20 Treatment Diagnosis TIA, L sided weakness Onset Date 04/11/20 Weight Bearing Status Weight Bearing Status Full Weight Bearing M3 PT-IP Subjective Start: 04/12/20 10:22 Freq: NEEDED Status: Active Protocol: Document 04/12/20 10:22 HH (Rec: 04/12/20 10:49 [email or web address]) Subjective Physical Therapy Visit Type Type Initial Evaluation Visit Start Time 09:20 Visit Stop Time 09:43 Total Visit Minutes 23 Number of CONTROLS DESIGNER Visits 0 Physical Therapy Visit Comments Patient Comments Im feeling fine today. Patient Goals To return home with family Therapy Pain Assessment Pain Present Pain Present Denied Pain M4 PT-IP Mobility and Gait Start: 04/12/20 10:22 Freq: NEEDED Status: Active Protocol: Document 04/12/20 10:22 (Rec: 04/12/20 10:49 [id number]) PT-Transfer Assessment Sit to and From Stand Sit to and from Stand Independent,Use of Upper Extremities Equipment Transfer Assistive Device None,Gait Belt Orthotic/Prosthetic Devices or Brace: No Transfers Transfer Destination Chair Transfer Technique none Transfer Ability Level of Assist Independent Comments Mobility Comments Pt was up in chair upon PT arrival. BP at 146/76. Denies any discomfort. Pt was being assessed neuro signs in seated position. He presents mild symptoms for dysmetria with nose to finger test, murphy to knee test and pronation supination tapping test. He overall demonstrates WFL ROM and strength. He then stood up independently by pushing off through armrests. He walked half of the AC unit and presented with a lateral trunk lean with R hip hike during LLE stance phase. Pt stated he is somewhat less steady than normal but does feel safe. Decreased L foot clearance also noted. He then returned to his room and sat in chair. BP 153/76. no discomfort noted . Gait Assessment Gait Gait Assistance Required: Standby Assistance Distance (Feet) 320 Able to Maintain Weight Bearing Status Yes During Gait Assistive Devices Assistive Device None,Gait Belt Orthotic/Prosthetic Devices or Brace: No Gait Deviations General Gait Pattern Within Normal Limits,Antalgic, Decreased Stride Length, Decreased Feet Clearance Factors Limiting Gait Function Factors Limiting Gait Function Poor Balance Comments Gait Comments He walked half of the AC unit and presented with a lateral trunk lean with R hip hike during LLE stance phase. Pt stated he is somewhat less steady than normal but does feel safe. Decreased L foot clearance also noted. He then returned to his room and sat in chair. BP 153/76. no discomfort noted. Stair Climbing Assessment Comments Stair Climbing Comments pt does not need to climb stair at home PT-Balance Assessment Sitting Balance and Reactions Static Sitting Balance Ability Normal Dynamic Sitting Balance Ability Normal Standing Balance and Reactions Static Standing Balance Ability Normal Dynamic Standing Balance Ability Normal Device Used none M5 PT-IP Objective Assessments Start: 04/12/20 10:22 Freq: NEEDED Status: Active Protocol: Document 04/12/20 10:22 (Rec: 04/12/20 10:49 [id number]) Orientation Orientation/Cognition Level of Alertness Alert Orientation Name,Age,Birthday,Month,Date, Year,Day of Week,Place, Situation Language Function Ability No Deficits Noted Safety Awareness Understands Safety Issues Memory Description No Deficits Noted Gross Range of Motion Upper Extremity ROM Assessment Within Functional Limits Lower Extremity ROM Assessment Within Functional Limits Strength Upper Extremity Strength Assessment Left Impaired Shoulder 5/5 Elbow 5/5 Wrist 4+/5 Hand 4+/5 Lower Extremity Strength Assessment Left Impaired Hip 4+/5 Knee 4+/5 Ankle 4/5 Comments Strength Comments noticed mild weakness on L side distal > proximal Coordination Assessment Gross Coordination Gross Coordination Impaired Assessment Finger to Nose Test Minimal Impairment Pronation/Supination Test Minimal Impairment Foot Tapping Test Minimal Impairment Coordination Comments mild impairment noted with decreased accurary but improved with increased time taken. Sensation Assessment Sensation Gross Sensation WNL Muscle Tone Muscle Tone WNL Yes Other Assessments Other Other Assessments B reflexes = intact smooth pursuit = intanct saccade= intact single leg stance= L = 5secs M6 PT-IP Treatment Start: 04/12/20 10:22 Freq: NEEDED Status: Active Protocol: Document 04/12/20 10:22 (Rec: 04/12/20 10:49 [id number]) Physical Therapy Treatment Education Education Provided Safety M7 PT-IP Assessment and Plan Start: 04/12/20 10:22 Freq: NEEDED Status: Active Protocol: Document 04/12/20 10:22 (Rec: 04/12/20 10:49 [id number]) PT Summary Assessment and Plan Potential Rehabilitation Potential Excellent Status of Condition at Evaluation Stable Summary Impairments Balance Assessment Summary This is a complexity evaluation for this 59yo male admitted to for TIA with L sided weakness and numbness. Upon assessment, pt demonstrates mild dysmetric with decreased accurary for finger to nose, murphy to knee, pronation/supination and foot tapping tests but improved with increased time taken. There's slight decreased in strength for distal extremetis on L side but WFL. Pt also presents a slight ataxia with excessive trunk lean to L and R hip hike during LLE stance phase, but he is safe for mobility with no signs of LOB. However, pt is overall functional independent and safe. Pt will have brain MRI to rule out abnormalities. Expect to be d/c home safely with outpatient PT to improve his coordination and balance. Treatment Plan Physical Therapy Treatment Plan Gait Training,Therapeutic Exercise,Coordination Retraining Other Recommendations and Next Treatment check Vitals Focus balance and gait training coordination training. Recommendations To Nursing Amount of Assist Needed Standby Assistance Discharge Recommendations PT Discharge Recommendations Home,Outpatient PT Transportation Needs at Discharge Private Vehicle
--- NOTE | 2020-04-12 11:34 | DI.ECHO.S_ITS ---
Echocardiogram Report + + :Name: REED CASTLE Study Date: 04/12/2020 Height: 74 in : :Hospital Weight: 317 lb : : Gender: Male BSA: 2.6 m2 : :: 1960 Age: 59 yrs BP: 136/78 mmHg: :Reason For Study: TIA, HYPERTENSIVE EMERGENCY, CHEST : :DISCOMFORT : :Ordering Physician: [place] : :Hospitalist Performed By: Lupe Dodge : :Referring: KEANU HUGO : + + Interpretation Summary Mild concentric left ventricular hypertrophy with ejection fraction 60-65%. Moderately dilated left atrium. No valvular abnormality. The ascending aorta is at the upper limits of normal in size. Procedure: A two-dimensional transthoracic echocardiogram with color flow and Doppler was performed. The study quality was technically adequate. There is no prior echocardiogram noted for this patient. The patient was in sinus rhythm with heart rates between 56-66 bpm during the exam. Left Ventricle: The left ventricle is normal in size. There is mild concentric left ventricular hypertrophy. There is no ventricular septal defect visualized. The ejection fraction is estimated to be 60-65%. There are no focal wall motion abnormalities. Diastolic parameters suggest probable normal left ventricular diastolic function and normal filling pressures. Right Ventricle: The right ventricle is normal in size and function. Atria: The left atrium is moderately dilated. Right atrial size is normal. There is no Doppler evidence for an interatrial shunt. Mitral Valve: The mitral valve is normal in structure and function. There is no mitral regurgitation noted. Aortic Valve: The aortic valve is normal in structure and function. No aortic regurgitation is present. Tricuspid Valve: The tricuspid valve is normal in structure and function. There is a trace or physiologic amount of tricuspid regurgitation. The right ventricular systolic pressure is estimated to be at least 26 mmHg based on an estimated right atrial pressure of 3 mm Hg. Pulmonic Valve: The pulmonic valve is not well visualized. There is trace pulmonic regurgitation. Great Vessels: The aortic root is normal size. The ascending aorta is at the upper limits of normal in size. The aortic arch could not be visualized. The IVC is of normal diameter and collapses greater than 50% with a sniff. This suggests a low right atrial pressure of 3 mm Hg. Pericardium/ Pleura There is no pericardial effusion. MMode/2D Measurements & Calculations LVIDd: 5.5 cm LVOT diam: 2.4 cm LVIDs: 2.9 cm Ao root diam: 4.2 cm FS: 46.7 % asc Aorta Diam: 3.4 cm EPSS: 0.31 cm IVSd: 1.3 cm LVPWd: 1.1 cm LV vu. diameter/BSA (cm/m^2): 2.1 LV sys. diameter/BSA (cm/m^2): 1.1 LA A2 area: 27.8 cm2 RA long axis: 5.5 cm LA A4 area: 27.8 cm2 RA area: 19.4 cm2 LA length (vol): 6.0 cm RA vol: 57.9 ml LA vol: 109.1 ml RA : 21.9 ml/m2 LA vol index: 41.3 ml/m2 IVC diam: 1.9 cm RVD1 (basal): 3.0 cm RVD2 (mid): 2.2 cm TAPSE: 3.3 cm Doppler Measurements & Calculations Ao V2 max: 173.3 cm/sec LVOT Max Hima: 133.8 cm/sec Ao V2 mean: 120.9 cm/sec LV V1 max P.2 mmHg Ao max P.0 mmHg LV V1 VTI: 28.3 cm Ao mean P.5 mmHg ALVARADO(I,D): 3.8 cm2 Ao V2 VTI: 33.5 cm ALVARADO(V,D): 3.5 cm2 sev ratio: 0.85 ALVARADO indexed to BSA (cm^2/m^2): 1.4 MV E max hima: 89.8 cm/sec TR max hima: 238.0 cm/sec MV A max hima: 92.3 cm/sec TR max P.7 mmHg MV E/A: 0.97 PA V2 max: 107.0 cm/sec Med Peak E' Hima: 7.5 cm/sec PA V2 mean: 74.7 cm/sec E/E' med: 12.0 PA mean P.5 mmHg Lat Peak E' Hima: 8.1 cm/sec PA Accel Time: 0.12 sec E/E' lat: 11.0 E/e' average: 11.5 MV dec time: 0.23 sec MV P1/2t: 67.1 msec MV P1/2t max hima: 90.4 cm/sec SV(LVOT): 127.2 ml MVA(P1/2t): 3.3 cm2 Electronically signed by: Yousuf Brooks on Reading Physician:04/12/2020 12:44 PM
[2020-04-12] MEDS: CLOPIDOGREL 75 MG TABLET 300 MG PO (12:26)
[2020-04-12 13:00] VITALS: BP 149/75; PULSE 61; RESP 15; TEMP 36.4; O2SAT 100
--- NOTE | 2020-04-12 13:42 | CM.DANOTE ---
Discharge Planning/Care Management DCP: assessment: case received. Met with pt briefly during Team Bedside Rounds and again now after he saw Dr. Song and was given ok for home with OUTPT PT recommended. Pt is a 59 year old male who admitted late last night to care of hospitalist team. PCP: Jasmin Bellamy: a physician at a [facility] clinic in [place]. Payer: [facility]. Pt had MRI today with findings of small subacute infarct. PT did see him, noted he was not fully back to baseline but was cleared as safe for the home setting and OUTPT therapy. Pt confirms he will obtain this referral from his [facility] physician and asks how to get this hospital stay plus his prior ER visit reports to his primary. He is advised to call the Medical Records dept on Wednesday to request same. Let him know that UR staff is faxing [facility] current clinical records now for their review. Pt going home with is as soon as all d/c paperwork is completed. CM Discharge Assessment Start: 04/12/20 13:40 Freq: Status: Active Protocol: Document 04/12/20 13:40 ITV (Rec: 04/12/20 13:42 ITV [id number]) Discharge Planning Assessment Advance Directives? No History Provided By Patient,Medical Record Has Patient been admitted in last 30 No days? Comment did admit to the ER earlier this month Prior Living Arrangements House Household Members spouse,children Comment youngest son lives on one level of the home Type of transporation used prior to Drives own vehicle admit Independent with ADL's Yes Is patient alert and oriented? Yes Review Status In Process
--- NOTE | 2020-04-12 14:41 | P.DS_ITS ---
History of Present Illness History of Present Illness Date Patient Seen: 04/12/20 Time Patient Seen: 14:41 Chief complaint: numbnessleft side-knee, hand, foot, face Narrative: As per DANIELLE Barber: Mr. Sundeep Srinivasan is a 59-year-old male with a past medical history significant for hypertension for which is no longer taking medication, hyperlipidemia on atorvastatin and anxiety who presents to the emergency department with left-sided numbness. The patient states that he was in his usual state health when he went to bed and woke this morning with left-sided tingling of his face, hand and leg. His also comments that he was slow to respond but had no difficulty word finding. She further states that he has had similar problems before when he is tired or have sad alcohol. Patient denies complaints of headaches or dizziness and has had visual changes. He reports no difficulty chewing or swallowing or problems with word finding. The patient was seen in the ER 2 weeks ago when kidney woke in the morning and developed anxiety and reported difficulties doing tasks with mid chest discomfort and possible associated shortness of breath. At that time he had no nausea vomiting no diaphoresis or headache. Of the aforementioned episode the patient has had no other complaints of pain or problems and has had no fevers or chills and denies any known COVID-19 exposures. Today he has had no complaints of chest pain or palpitations, shortness of breath cough or wheezing. He denies epigastric or abdominal pain and has had no nausea vomiting and denies constipation or diarrhea. Reports no difficulty with urination. Upon arrival to the ER the patient has a temperature 98.2? heart rate of 62, blood pressure 207/96, respirations of 18 saturating 97% on room air. A CT of the head is obtained finding no trauma, no evidence of stroke, intercerebral hemorrhage or mass. An EKG is obtained which finds sinus bradycardia with rate of 54 without ectopy or block, ischemia or infarct. On laboratory analyses white count of 5.6, hemoglobin 13.6, hematocrit of 40.1, platelets 155. He has a PT of 11.9 with an INR 1.0 and PTT of 34. His electrolytes are all within normal range and he has a BUN of 21 and creatinine 0.77. His BUN creatinine ratio of 27.3. His nonfasting blood sugar is 131. His liver functions are all within normal limits and his albumin is 4.3. His troponin is negative at less than 0.012 and alcohol is less than 10. Patient is given aspirin 324 mg in the ER and while there is numbness and tingling has been improving. The patient is admitted to the medicine service for further evaluation of TIA. Discharge Providers Provider Date of admission: 04/11/20 23:50 Discharge Date: 04/12/20 Consults: 04/11/20 23:07 Consult to Discharge Planning Routine Comment: Consult to Occupational Therapy Evaluate & Treat Comment: Left-sided paresthesia Physician Instructions: Evaluate and treat Consult to Physical Therapy Evaluate & Treat Comment: Left-sided paresthesia Physician Instructions: Evaluate and Treat 04/12/20 00:41 Consult to Respiratory Therapy Evaluate & Treat Comment: ANDREI with CPAP, may use own machine. Physician Instructions: Evaluate and treat Discharge provider: Bobo Song DO Summary Hospital Course Discharge Diagnosis: 1. CVA, acute, present on admission 2. Essential HTN, active, present on admission 3. HLD, chronic Hospital Course: Patient was admitted under observation status for further evaluation. He underwent an echocardiogram which is still pending final read at this time, but given no symptomatology at time of discharge is unlikely to be abnormal. He also underwent an MRI which did show a subacute infarct in the R saadia as well as scattered white matter abnormalities consistent with ischemic disease. He was started on aspirin and will complete 21 days of plavix for additional stroke prevention given his NIH was at most 1 on admission. His lipitor was increased to 80 mg and he was started on losartan for elevated blood pressures while admitted. He will need to follow up with his PCP next for further blood pressure control and referral for outpatient PT given physical the rapy here did pickling grader on a small amount of ataxia more prominent on the L. PT stated he was safe for discharge home with outpatient PT. A significant amount of education was given regarding changes to diet and exercise regimen, and the patient appears motivated to eat more healthily and begin additional exercise. Exam Vital Signs (past 8 hours): - 04/12/20 07:40 04/12/20 13:00 Temperature 98.6 F 97.6 F Pulse Rate 55 L 61 Respiratory Rate 18 15 Blood Pressure 136/78 149/75 H Pulse Oximetry 100 100 Oxygen Delivery Method Room Air Oxygen Flow Rate 0 Narrative Exam Narrative: GENERAL APPEARANCE: well developed, obese male lying semi recumbent on stretcher in no acute distress. HEENT: Symmetrical facies, no ptosis, PERRLA, conjunctiva clear, sclerae anicteric, EOMs intact without nystagmus, no sinus tenderness to percussion, no rhinorrhea, mucous membranes are moist and pink without lesions or exudate. NECK/THYROID: neck supple, nontender, no JVD, no carotid bruit, no thyromegaly, trachea midline. LYMPH NODES: no cervical or supraclavicular lymphadenopathy. SKIN: [place], warm and dry, no visible lesions, rashes, ulcerations or petechiae. HEART: Bradycardic rate and regular rhythm, S1-S2, no murmur, no rubs or gallops, brisk capillary refill, no edema LUNGS: clear to auscultation bilaterally, no coarseness crackles or wheezing, no cough present CHEST: Symmetrical movement, no accessory muscle use, good tidal volume. ABDOMEN: Soft, obese, no epigastric or abdominal tenderness, no organomegaly, no flank tenderness, active bowel tones. EXTREMITIES: moves all extremities, strength is 5/5 and symmetrical, no deformities or joint effusions. NEUROLOGIC: AAO x4, cranial nerves II-XII grossly intact, finger tips sensation altered, but states this is chronic, hearing grossly normal to speech. PSYCH: Reserved, flat affect, cooperative Objective Labs Result Diagrams: 04/12/20 07:27 04/12/20 07:27 Labs: Laboratory Results - last 24 hr 04/11/20 04/11/20 04/11/20 21:30 21:30 21:30 WBC 5.6 RBC 4.52 Hgb 13.6 Hct 40.1 L MCV 88.7 MCH 30.0 MCHC 33.8 RDW 13.4 Plt Count 155 Neut % (Auto) 66.7 Lymph % (Auto) 24.9 L [place] % (Auto) 5.8 Eos % (Auto) 2.0 Baso % (Auto) 0.6 Neut # (Auto) 3800 Lymph # (Auto) 1400 [place] # (Auto) 300 Eos # (Auto) 100 Baso # (Auto) 0 PT 11.9 INR 1.0 APTT 34 Sodium 138 Potassium 3.9 Chloride 105 Carbon Dioxide 22 BUN 21 H Creatinine 0.77 Estimated GFR > 60.0 BUN/Creatinine Ratio 27.3 H Glucose 131 H Hemoglobin A1c Calcium 9.1 Magnesium Total Bilirubin 0.6 AST 31 ALT 23 Alkaline Phosphatase 60 Troponin I < 0.012 Total Protein 7.0 Albumin 4.3 Globulin 2.7 Albumin/Globulin Ratio 1.6 Triglycerides Cholesterol LDL Cholesterol, Calc HDL Cholesterol Lipase 48 TSH Ethyl Alcohol 04/11/20 04/11/20 04/12/20 21:30 21:30 07:27 WBC 5.0 RBC 4.30 L Hgb 13.2 L Hct 38.2 L MCV 88.7 MCH 30.7 MCHC 34.6 RDW 13.2 Plt Count 152 Neut % (Auto) 66.4 Lymph % (Auto) 22.9 L [place] % (Auto) 6.9 Eos % (Auto) 3.0 Baso % (Auto) 0.8 Neut # (Auto) 3300 Lymph # (Auto) 1100 [place] # (Auto) 300 Eos # (Auto) 200 Baso # (Auto) 0 PT INR APTT Sodium Potassium Chloride Carbon Dioxide BUN Creatinine Estimated GFR BUN/Creatinine Ratio Glucose Hemoglobin A1c Calcium Magnesium 2.0 Total Bilirubin AST ALT Alkaline Phosphatase Troponin I Total Protein Albumin Globulin Albumin/Globulin Ratio Triglycerides Cholesterol LDL Cholesterol, Calc HDL Cholesterol Lipase TSH Ethyl Alcohol < 10 04/12/20 04/12/20 04/12/20 07:27 07:27 07:27 WBC RBC Hgb Hct MCV MCH MCHC RDW Plt Count Neut % (Auto) Lymph % (Auto) [place] % (Auto) Eos % (Auto) Baso % (Auto) Neut # (Auto) Lymph # (Auto) [place] # (Auto) Eos # (Auto) Baso # (Auto) PT INR APTT Sodium 137 Potassium 4.0 Chloride 108 H Carbon Dioxide 23 BUN 19 Creatinine 0.80 Estimated GFR > 60.0 BUN/Creatinine Ratio 23.8 H Glucose 98 Hemoglobin A1c 5.4 Calcium 9.3 Magnesium Total Bilirubin AST ALT Alkaline Phosphatase Troponin I Total Protein Albumin Globulin Albumin/Globulin Ratio Triglycerides 113 Cholesterol 221 H LDL Cholesterol, Calc 149 H HDL Cholesterol 49 Lipase TSH 2.76 Ethyl Alcohol Discharge Plan Discharge Plan Patient Disposition: Home Discharge comment: You were admitted to the hospital after some L sided numbness and trouble speaking. Your MRI was positive for a stroke. Your started on a number of medications, and your Lipitor was also increased to try and reduce your risk of having another stroke. Please follow up with your primary care provider as soon as possible to help prescribe outpatient physical therapy. Discharge orders & Medications Prescriptions: New aspirin 81 mg Tablet,Delayed Release (Dr/Ec) 81 mg PO DAILY 30 Days Qty: 30 RF: 0 clopidogrel 75 mg Tablet 75 mg PO DAILY 21 Days Qty: 21 RF: 0 atorvastatin [Lipitor] 80 mg tablet 80 mg PO BEDTIME 30 Days Qty: 30 RF: 0 losartan 25 mg tablet 25 mg PO DAILY 30 Days Qty: 30 RF: 0 Continued hydroxyzine HCl 25 mg tablet 25 mg PO DAILY PRN (Reason: Anxiety) RF: 0 Discontinued atorvastatin 20 mg tablet 20 mg PO BEDTIME RF: 0 Discharge Health Status Health Concerns: CVA Care Plan Goals: stroke prevention Outpatient PT Diet/Activity/Treatments Diet: Diet as Tolerated and Low-cholesterol Activity: As tolerated Visit Report/Discharge Packet Instructions: Transient Ischemic Attack, Cholesterol-lowering Diet, DI for Stroke-Ischemic, Clopidogrel, Losartan Visit Report Forms: Patient Portal/API, Stroke Signs & Symptoms Discharge Data Attending Provider: Bobo Early Admit Date/Time: 04/11/20 23:50 Discharges patient from system. Discharge Date/Time: 04/12/20 15:31 Quality VTE Deep Vein Thrombosis/Pulmonary Embolism Present on Admission: No
--- NOTE | 2020-04-12 14:59 | OT.IP.EVAL ---
Past Medical History (Last Reviewed 04/12/20 @ 05:06 by Abelardo Lopez DO) Anxiety (Acute) Dyslipidemia (Acute) Hypertension (Acute) Surgical History (Last Reviewed 04/12/20 @ 05:06 by Abelardo Lopez DO) History of hernia repair (Acute) History of tonsillectomy (Acute) Occupational Therapy Inpatient Evaluation/Re-Eval M1 PT/OT-IP Prior Functional Status Start: 04/12/20 10:22 Freq: NEEDED Status: Active Protocol: Document 04/12/20 15:23 CGR (Rec: 04/12/20 15:40 CGR [email or web address]) Medical Review Prior Functional Status Medical History Reviewed Yes Diet/Fluid Consistency Regular Communication able to make needs known. no deficits noted. Mobility and Gait Independent for all mobility without using AD Activities of Daily Living and IADL's independent for all ADLs and IADLs without AD Social History Household Members spouse,children Living Arrangements House Number of Floors (Floors) Two Floors Number of Stairs To Enter/Railing? 1 step to enter. Pt enters on the main level and doesn't need to go down stairs. 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 M2 OT-IP Current Condition Start: 04/12/20 15:22 Freq: Status: Active Protocol: Document 04/12/20 15:23 CGR (Rec: 04/12/20 15:40 CGR [email or web address]) Occupational Therapy Current Condition Current Condition Evaluation Date 04/12/20 Treatment Diagnosis L sided weakness Diagnosis Onset Date 04/11/20 M3 OT- IP Subjective and Pain Start: 04/12/20 15:22 Freq: Status: Active Protocol: Document 04/12/20 15:23 CGR (Rec: 04/12/20 15:40 CGR [email or web address]) OT- Subjective Occupational Therapy Visit Type Type Initial Evaluation Visit Start Time 14:40 Visit Stop Time 14:59 Total Visit Minutes 19 Notes Pt's present throughout session. OT Pain Assessment Pain When Pain Assessed At Rest Pain Present Pain Present Denied Pain M4 OT- IP ADL's Start: 04/12/20 15:22 Freq: Status: Active Protocol: Document 04/12/20 15:23 CGR (Rec: 04/12/20 15:40 CGR [email or web address]) OT [id number] Comments OT Self-Feeding Comments not meal time OT ADL-Grooming Comments OT Grooming Comments pt declined OT ADL-Oral Care Comments Oral Care Comments pt declined OT ADL-Dressing General Eval Lower Body Dressing Ability Independent Areas Needing Assistance Shoes Comments OT Dressing Comments pt able to doff and don shoes without assist OT ADL-Toileting General Evaluation Toileting Ability Independent OT ADL-Bathing Comments OT Bathing Comments not performed M5 OT- IP IADL's Start: 04/12/20 15:22 Freq: Status: Active Protocol: Document 04/12/20 15:23 CGR (Rec: 04/12/20 15:40 CGR [email or web address]) OT-Instrumental Activities of Daily Living Deficits IADL Deficits Identified No Deficits Home Safety Awareness Awareness of Need for Assistance at Home Good Awareness Ability to Problem Solve Emergency Able to Problem Solve Situations Medication Management Medication Management No Deficits Identified Money Management Money Management No Deficits Identified Meal Preparation Meal Preparation No Deficits Identified Corporate Legal Secretary Corporate Legal Secretary No Deficits Identified Driving Driving Comments 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 OT- IP Functional Cognition Start: 04/12/20 15:22 Freq: Status: Active Protocol: Document 04/12/20 15:23 CGR (Rec: 04/12/20 15:40 CGR [email or web address]) Cognitive Factors Limiting Selfcare Function Cognitive Ability Level of Alertness Alert Patient Orientation Name,Age,Birthday,Month,Date, Year,Day of Week,Place, Situation Attention Span Ability Capable of Focused Attention, Capable of Sustained Attention Ability to Follow Commands Able to Follow Multi-Step Commands OT- Vision and Hearing OT- Hearing Assessment OT- Hearing Assessment WFL OT- Vision Assessment Visual Acuity Glasses For Reading Visual Attentiveness WFL Vision Assessment Comments Pt appears to have less than normal perpherial vision and is without smooth persuits. Recommended to pt that he should visit his eye doctor for a follow up. M7 OT- IP Mobility and Balance Start: 04/12/20 15:22 Freq: Status: Active Protocol: Document 04/12/20 15:23 CGR (Rec: 04/12/20 15:40 CGR [email or web address]) OT- Bed Mobility Assessment Rolling Type of Rolling Roll to Right,Roll to Left Level of Assistance Independent Supine to Sit Supine to Sit Assist Independent Sit to Supine Sit to Supine Assist Independent Scooting Scooting to Edge of Bed Independent OT-Transfer Assessment Sit to and From Stand Sit to and from Stand Independent Transfers Transfer Ability Independent Technique Transfer Destination Bed,Chair,Toilet Transfer Technique Stand Step Pivot Devices Transfer Assistive Devices None OT- Gait Assessment Gait Gait Assistance Required: Independent Assistive Devices Assistive Device None OT- Balance Assessment Sitting Balance and Reactions Static Sitting Balance Ability Normal Dynamic Sitting Balance Ability Normal M8 OT- IP Objective Assessments Start: 04/12/20 15:22 Freq: Status: Active Protocol: Document 04/12/20 15:23 CGR (Rec: 04/12/20 15:40 CGR [email or web address]) OT Gross Range of Motion Upper Extremity Range of Motion Assessment Within Functional Limits OT Strength Upper Extremity Strength Assessment Within Functional Limits Comments Strength Comments noted minimally less strength to the LUE than right but this may be his baseline as pt is R handed OT- Coordination Assessment Upper Extremity Finger to Nose Test Within Functional Limits Finger Tapping Test Within Functional Limits Comments Coordination Comments coordination testing was WFL but noted more clumsy movements to the L hand. OT-Muscle Tone Assessment Muscle Tone WNL Yes OT Sensation Assessment Comments Summary Comments Pt states typical sensation to BUE but that he has had numbness to the fingertips on the L that comes and goes. Edema Edema Absent M9 OT- IP Assessment and Plan Start: 04/12/20 15:22 Freq: Status: Active Protocol: Document 04/12/20 15:23 CGR (Rec: 04/12/20 15:40 CGR [email or web address]) OT Summary Assessment and Plan Potential Rehabilitation Potential Excellent Analytic Complexity at Evaluation Low Summary OT Impairments Coordination Progress Towards Goals Safe For Discharge Assessment Summary Pt presents as a low complexity evaluation s/p L sided weakness. Pt currently demonsrtates less cordination to the LUE and possible visual deficits/declines. Recommend pt see his eye doctor for follow up on visual testing and see an outpatient OT for LUE coordination. Educated pt on exercies that he could do to assist in his LUE coordination till he is able to see an outpatient therapist . Frequency of Treatment Frequency Of Treatment Discharge Discharge Recommendations OT Discharge Recommendations Home Other Discharge Recommendations outpatient OT for LUE coordination Transportation Needs at Discharge Private Vehicle
--- NOTE | 2020-04-12 15:30 | PC.NURSE ---
Went over dc instructions and medications with patient. Questions answered. Rx sent electronically to [facility], patient walked to vehicle driven by family. Patient had all belongings.
--- NOTE | 2020-04-17 16:17 | PC.NURSE ---
Late Entry: Normal saline infusion initiated 04/12 at 00:42. Order d/c'd and infusion stopped 04/12 at 09:15.
== END 2020-04-12 15:31 | disposition home or self-care (01) ==
LOC: ED 22:43 → AC 23:51
PROVIDERS: Admitting Provider Nurse Practitioner Adult Health; Emergency Provider Emergency Medicine; Referring Provider Emergency Medicine; Visit Provider Nurse Practitioner Adult Health
DX: I63.9 Cerebral infarction, unspecified (principal); R29.818 Other symptoms and signs involving the nervous system; I10 Essential (primary) hypertension; E78.5 Hyperlipidemia, unspecified; F41.9 Anxiety disorder, unspecified; G47.33 Obstructive sleep apnea (adult) (pediatric)
CPT/HCPCS: 36415; 70450; 70548; 70553; 80048; 80053; 80061; 80320; 83036; 83690; 83735; 84443; 84484; 85025; 85610; 85730; 93005; 93306; 96360; 96361; 96372; 97162; 97165; 99285; G0378; J1650

== ENCOUNTER → 2021-09-18 13:55 | Outpatient (CLI) | payer OTHER, SELFPAY ==
[2021-09-18 14:33] LABS: COVID19 -Nasal RAPID Negative (Negative)
== END ==
PROVIDERS: Referring Provider Physician Assistant; Visit Provider Physician Assistant
DX: R09.81 Nasal congestion (principal); R51.9 Headache, unspecified
CPT/HCPCS: 87635

== ENCOUNTER 2022-03-06 15:41 | Emergency (ER) | payer OTHER, SELFPAY ==
[2022-03-06 15:43] VITALS: BP 200/91; PULSE 62; RESP 16; TEMP 36.7; O2SAT 100; BMI 38.2
--- NOTE | 2022-03-06 16:11 | DI.RAD.S_ITS ---
PROCEDURE: XR CHEST 1V INDICATIONS: chest pain TECHNIQUE: One view of the chest was acquired. COMPARISON: None. FINDINGS: Surgical changes and devices: None. Lungs and pleura: Lungs are clear. No pleural effusions or pneumothorax. Mediastinum: Mediastinal contours appear normal. Heart size is normal. Bones and chest wall: No suspicious bony lesions. Overlying soft tissues appear unremarkable. IMPRESSION: No acute pulmonary process. Dictated by: Brittany Vera M.D. on 03/06/2022 at 16:33 Approved by: Brittany Vera M.D. on 03/06/2022 at 16:34
--- NOTE | 2022-03-06 16:12 | ED.NEUROSD ---
HPI - Neuro Symptoms/Deficit <Denisse Bowden DO - Last Filed: 03/07/22 06:56> General Chief Complaint: Neuro Symptoms/Deficit Stated Complaint: THINKS STROKE NUMBNESS OF HANDS AND FEET Time Seen by Provider: 03/06/22 16:04 Mode of arrival: Family Vehicle History of Present Illness HPI Narrative: Patient is a 61-year-old male history of TIA and hypertension presenting today with in fingertips and toes with some chest pressure. He went to see his primary care provider in [place] today for routine checkup. On his way home he started having tingling in both toes and bilateral fingertips. He started having pressure all in both shoulders. He is noted to be quite hypertensive here in the emergency department with a blood pressure 200/91. She denies any weakness or facial numbness. He said previously when he had a TIA 1 year ago it was left-sided symptoms. He denies any shortness of breath. No fever or chills. On Anticoagulants: Yes (81mg aspirin) Related Data Home Medications Medication Instructions Recorded Confirmed aspirin 81 mg tablet,delayed 81 mg PO DAILY 09/18/21 09/18/21 release (Adult Aspirin Regimen) atorvastatin 10 mg tablet 10 mg PO DAILY 09/18/21 09/18/21 losartan 25 mg tablet 25 mg PO DAILY 09/18/21 09/18/21 Allergies Allergy/AdvReac Type Severity Reaction Status Date / Time lisinopril Allergy Severe Cough Verified 03/06/22 15:52 Review of Systems <DO Norris Bentley Last Filed: 03/07/22 06:56> Review of Systems Narrative: GENERAL: Denies chills, fatigue, malaise, fever, sweats, travel HEENT: Denies sinus pain, ear pain, sore throat, difficulty swallowing, neck pain RESPIRATORY: Denies dyspnea, cough, wheezing, hemoptysis, sputum. CARDIOVASCULAR:see HPI GASTROINTESTINAL: Denies nausea, vomiting, abdominal pain, diarrhea, constipation, melena. : Denies dysuria, frequency, incontinence, hematuria, urinary retention, flank pain. MUSCULOSKELETAL: Denies weakness, joint pain, or bony pain SKIN: No rash, no erythema, no pruritus NEUROLOGIC:see HPI PSYCHIATRIC: No concerning psychosocial issues. 12 point review of systems is negative except for those stated above and HPI Hematologic/Lymphatic On Anticoagulants: Yes (81mg aspirin) Patient History <Denisse Bowden DO - Last Filed: 03/07/22 06:56> Medical History Anxiety Dyslipidemia Hypertension URI (upper respiratory infection) Surgical History History of hernia repair History of tonsillectomy Family History Father Leyva's disease Impaired vision Mother Cancer Brother Cancer Sister Myocardial infarction Son Asthma Social History household members: spouse and children Smoking Status: Never smoker alcohol intake: current Smoking Status: Never smoker alcohol intake frequency: 0-2 drinks per day Substance Use Type: marijuana Exam <Denisse Bowden DO - Last Filed: 03/07/22 06:56> Initial Vital Signs Initial Vital Signs: Vital Signs Temperature 98.0 F 03/06/22 15:43 Pulse Rate 62 03/06/22 15:43 Respiratory Rate 16 03/06/22 15:43 Blood Pressure 200/91 H 03/06/22 15:43 Pulse Oximetry 100 03/06/22 15:43 GENERAL: Alert well-appearing 61-year-old male BMI 38 in no acute distress. HEENT: Head atraumatic,EOMI, pupils reactive, face symmetric, moist mucous membranes CARDIOVASCULAR: Regular rate and rhythm without murmurs, rubs or gallops. RESPIRATORY: Breath sounds equal bilaterally, no wheezes rales or rhonchi. ABDOMEN: Soft, nontender. Normoactive bowel sounds all 4 quadrants. No guarding or rebound. EXTREMITIES: Normal range of motion, no clubbing or edema. Neurovascularly intact NEUROLOGICAL: Alert and oriented x4.Normal gait and speech. Gas Distribution Supervisor strength equal bilaterally SKIN: Warm, dry, no laceration, no petechiae, no rashes or lesions. <Daniel Zavala DO - Last Filed: 03/07/22 06:07> Initial Vital Signs Initial Vital Signs: Vital Signs Temperature 98.0 F 03/06/22 15:43 Pulse Rate 62 03/06/22 15:43 Respiratory Rate 16 03/06/22 15:43 Blood Pressure 200/91 H 03/06/22 15:43 Pulse Oximetry 100 03/06/22 15:43 Scores <Denisse Bowden DO - Last Filed: 03/07/22 06:56> NIH Stroke Scale Level of Conciousness: Alert, keenly responsive Ask month/age: Answers both questions correctly. Open/close eyes, close hand: Performs both tasks correctly Best gaze horizontal: Normal Visual sharp: No visual loss Facial palsy: Normal symetrical movement Left arm drift: No drift for full 10 sec Right arm drift: No drift for full 10 sec Left leg drift: No drift for full 5 sec Right leg drift: No drift for full 5 sec Limb ataxia: Absent Sensory on face/arms/legs: Normal, no sensory loss Best language: No aphasia, normal Dysarthria: Normal Extinction or inattention: No abnormality Total NIH Stroke scale score: 0 Course <Denisse Bowden DO - Last Filed: 03/07/22 06:56> Orders Ordered: Discontinued Medications Hydralazine HCl (Hydralazine 20 Mg/Ml Vial) 10 mg IV NOW ONE Stop: 03/07/22 00:28 Last Admin: 03/07/22 01:24 Dose: Not Given Documented by: CONNOR Vital Signs Vital signs: Vital Signs - 8 hr 03/06/22 23:02 03/07/22 00:32 03/07/22 01:23 Pulse Rate 60 49 L 49 L Pulse Rate [Orthostatic Lying] 62 Pulse Rate [Orthostatic Sitting] 62 Pulse Rate [Orthostatic Standing] 60 Respiratory Rate 16 16 12 Blood Pressure 165/79 H 185/66 H Blood Pressure [Orthostatic Lying] 172/93 H Blood Pressure [Orthostatic Sitting] 178/91 H Blood Pressure [Orthostatic Standing] 183/100 H Pulse Oximetry 99 99 99 <Daniel Zavala DO - Last Filed: 03/07/22 06:07> Orders Ordered: Discontinued Medications Hydralazine HCl (Hydralazine 20 Mg/Ml Vial) 10 mg IV NOW ONE Stop: 03/07/22 00:28 Last Admin: 03/07/22 01:24 Dose: Not Given Documented by: SHAGGYUDSON Vital Signs Vital signs: Vital Signs - 8 hr 03/06/22 23:02 03/07/22 00:32 03/07/22 01:23 Pulse Rate 60 49 L 49 L Pulse Rate [Orthostatic Lying] 62 Pulse Rate [Orthostatic Sitting] 62 Pulse Rate [Orthostatic Standing] 60 Respiratory Rate 16 16 12 Blood Pressure 165/79 H 185/66 H Blood Pressure [Orthostatic Lying] 172/93 H Blood Pressure [Orthostatic Sitting] 178/91 H Blood Pressure [Orthostatic Standing] 183/100 H Pulse Oximetry 99 99 99 MDM - Neuro Symptoms/Deficit <Denisse Dennise, DO - Last Filed: 03/07/22 06:56> Lab Data Result diagrams: 03/06/22 16:30 03/06/22 16:30 Labs: Lab Results 03/06/22 03/06/22 03/06/22 Range/Units 16:30 16:30 19:43 WBC 4.6 (4.5-11.0) X10^3/uL RBC 4.49 L (4.5-5.9) X10^6/uL Hgb 13.7 (13.5-17.5) g/dL Hct 40.1 L (41-53) % MCV 89.4 (80-100) fL MCH 30.4 (26-34) PG MCHC 34.0 (30-36) % RDW 13.3 (11.6-14.8) % Plt Count 148 L (150-400) X10^3/uL Neut % (Auto) 76.5 H (50-75) % Lymph % (Auto) 17.0 L (25-40) % Davidson % (Auto) 5.0 (3-14) % Eos % (Auto) 1.0 L (2-4) % Baso % (Auto) 0.5 (0-2) % Neut # (Auto) 3500 (2927-6611) /uL Lymph # (Auto) 800 L (8001-6680) /uL Davidson # (Auto) 200 (0-900) /uL Eos # (Auto) 0 (0-450) /uL Baso # (Auto) 0 (0-100) /uL Sodium 139 (137-145) mmol/L Potassium 4.1 (3.4-5.1) mmol/L Chloride 108 H (98-107) mmol/L Carbon Dioxide 25 (22-32) mmol/L BUN 18 (9-20) mg/dL Creatinine 0.88 (0.66-1.25) mg/dL Estimated GFR > 60 (>60) mL/min BUN/Creatinine Ratio 20.5 (6-22) Glucose 110 (80-110) mg/dL Calcium 9.3 (8.4-10.2) mg/dL Total Bilirubin 1.0 (0.2-1.3) mg/dL AST 34 (17-59) IU/L ALT 31 (<50) IU/L Alkaline Phosphatase 74 (38-126) U/L Total Creatine Kinase 327 H (55-170) U/L CK-MB (CK-2) 3.55 H (<2.37) ng/mL CK-MB (CK-2) Rel Index 1.1 L (1.5-5.0) % Troponin I < 0.012 < 0.012 (0.01-0.034) ng/mL Total Protein 7.5 (6.3-8.2) g/dL Albumin 4.5 (3.5-5.0) g/dL Globulin 3.0 (1.7-4.1) g/dL Albumin/Globulin Ratio 1.5 (1.0-2.8) Lipase 64 (23-300) U/L Urine Dip Bedside Urine Glucose Negative Bedside Urine Bilirubin - Negative Bedside Urine Ketone - Negative Urine Specific [place] 1.015 Bedside Urine Occult Blood - Negative Bedside Urine pH 6.0 Bedside Urine Protein - Negative Bedside Urine Urobilinogen - Negative Bedside Urine Nitrite - Negative Bedside Urine Leukocytes - Negative Esterase Imaging Data CT scan - head: Radiologist's Impression: TANA Delacruz [id number] CT Scan Report Signed Patient: Sundeep Srinivasan MR#: [id number] : 1960 Acct:[id number] Age/Sex: 61 / M Date of Service: 03/06/22 Loc: ED Accession Number: [id number] ?? Procedure: CT head/brain wo con Ordering Provider: Denisse Bowden D.O. PROCEDURE:? CT HEAD/BRAIN WO CON ? INDICATIONS:? tingling bilaterally with HTN ? TECHNIQUE:? Noncontrast 4.5 mm thick angled axial sections acquired from the foramen magnum to the vertex, with coronal and sagittal reformats.? For radiation dose reduction, the following was used:? automated exposure control, adjustment of mA and/or kV according to patient size.? ? COMPARISON:? MR, MR STROKE, 04/12/2020, 10:13.? [facility], CT, CT HEAD/BRAIN WO CON, 04/11/2020, 21:23. ? FINDINGS:? Image quality:? Excellent.? ? CSF spaces:? Basal cisterns are patent.? No extra-axial fluid collections.? The ventricles are symmetric in size and shape.? ? Brain:? No intracranial hemorrhage, mass, or mass effect.? There is a small focal hypodensity within the right paracentral region of the saadia which is new compared to the prior CT study but corresponds to a small lacunar infarct seen on the prior MRI.? There are subcortical, periventricular and deep white matter hypodensities consistent with mild chronic small vessel ischemic changes.? The manning-white matter junction appears preserved. ?There is intracranial internal carotid artery atherosclerosis.? ? Skull and face:? Calvarium and visualized facial bones are intact, without suspicious lesions.? ? Sinuses:? Visualized sinuses and mastoids are clear.? ? IMPRESSION:? ? 1. No acute intracranial abnormality. ? 2. Sequelae of a prior lacunar infarct in the right saadia demonstrated as seen on the prior MRI. ? 3. Mild chronic white matter small vessel ischemic changes.? ? ? Dictated by: Rufus Ordaz M.D. on 03/06/2022 at 20:47 ? ? Approved by: Rufus Ordaz M.D. on 03/06/2022 at 20:54 ? Chest x-ray: Radiologist's Impression: TANA Delacruz [id number] XRay Report Signed Patient: Sundeep Srinivasan MR#: [id number] : 1960 Acct:[id number] Age/Sex: 61 / M Date of Service: 03/06/22 Loc: ED Accession Number: [id number] ?? Procedure: XR chest 1V Ordering Provider: Denisse Bowden D.O. PROCEDURE:? XR CHEST 1V ? INDICATIONS:? chest pain ? TECHNIQUE:? One view of the chest was acquired.? ? COMPARISON:? None. ? FINDINGS:? ? Surgical changes and devices:? None.? ? Lungs and pleura:? Lungs are clear.? No pleural effusions or pneumothorax.? ? Mediastinum:? Mediastinal contours appear normal.? Heart size is normal.? ? Bones and chest wall:? No suspicious bony lesions.? Overlying soft tissues appear unremarkable.? ? IMPRESSION:? No acute pulmonary process. ? ? Dictated by: Brittany Vera M.D. on 03/06/2022 at 16:33 ? ? Approved by: Brittany Vera M.D. on 03/06/2022 at 16:34 ? ECG Data Interpretation: Normal sinus 60 p.r. interval 170 QRS 96 QTC 428 Q-wave noted in remains similar to previous EKG in 2012 MDM Narrative Medical decision making narrative: Patient's signs and symptoms of numbness and tingling in all fingertips and all toes. Having tingling in his left upper lip. Not really consistent with stroke but new for him. NIH is 0. Initial blood pressure in the 200s. Initial troponin is negative he is not having any real chest discomfort but was having some left shoulder pain. Repeat troponin is pending. Patient signed out to Dr. Zavala <Daniel Zavala, DO - Last Filed: 03/07/22 06:07> Lab Data Labs: Lab Results 03/06/22 03/06/22 03/06/22 Range/Units 16:30 16:30 19:43 WBC 4.6 (4.5-11.0) X10^3/uL RBC 4.49 L (4.5-5.9) X10^6/uL Hgb 13.7 (13.5-17.5) g/dL Hct 40.1 L (41-53) % MCV 89.4 (80-100) fL MCH 30.4 (26-34) PG MCHC 34.0 (30-36) % RDW 13.3 (11.6-14.8) % Plt Count 148 L (150-400) X10^3/uL Neut % (Auto) 76.5 H (50-75) % Lymph % (Auto) 17.0 L (25-40) % Davidson % (Auto) 5.0 (3-14) % Eos % (Auto) 1.0 L (2-4) % Baso % (Auto) 0.5 (0-2) % Neut # (Auto) 3500 (8910-9075) /uL Lymph # (Auto) 800 L (9357-1663) /uL Davidson # (Auto) 200 (0-900) /uL Eos # (Auto) 0 (0-450) /uL Baso # (Auto) 0 (0-100) /uL Sodium 139 (137-145) mmol/L Potassium 4.1 (3.4-5.1) mmol/L Chloride 108 H (98-107) mmol/L Carbon Dioxide 25 (22-32) mmol/L BUN 18 (9-20) mg/dL Creatinine 0.88 (0.66-1.25) mg/dL Estimated GFR > 60 (>60) mL/min BUN/Creatinine Ratio 20.5 (6-22) Glucose 110 (80-110) mg/dL Calcium 9.3 (8.4-10.2) mg/dL Total Bilirubin 1.0 (0.2-1.3) mg/dL AST 34 (17-59) IU/L ALT 31 (<50) IU/L Alkaline Phosphatase 74 (38-126) U/L Total Creatine Kinase 327 H (55-170) U/L CK-MB (CK-2) 3.55 H (<2.37) ng/mL CK-MB (CK-2) Rel Index 1.1 L (1.5-5.0) % Troponin I < 0.012 < 0.012 (0.01-0.034) ng/mL Total Protein 7.5 (6.3-8.2) g/dL Albumin 4.5 (3.5-5.0) g/dL Globulin 3.0 (1.7-4.1) g/dL Albumin/Globulin Ratio 1.5 (1.0-2.8) Lipase 64 (23-300) U/L Urine Dip Bedside Urine Glucose Negative Bedside Urine Bilirubin - Negative Bedside Urine Ketone - Negative Urine Specific [place] 1.015 Bedside Urine Occult Blood - Negative Bedside Urine pH 6.0 Bedside Urine Protein - Negative Bedside Urine Urobilinogen - Negative Bedside Urine Nitrite - Negative Bedside Urine Leukocytes - Negative Esterase MDM Narrative Medical decision making narrative: Patient's signs and symptoms of numbness and tingling in all fingertips and all toes. Having tingling in his left upper lip. Not really consistent with stroke but new for him. NIH is 0. Initial blood pressure in the 200s. Initial troponin is negative he is not having any real chest discomfort but was having some left shoulder pain. Repeat troponin is pending. Patient signed out to Dr. Zavala [[id number]] (Lucas) Patient received in sign out from [Dennise]. I have reviewed the clinical course and performed an independent history and physical exam. Patient's symptoms have resolved. EKGs are nonocclusive, head CT is unremarkable, 2nd troponin is unremarkable. Blood pressure has improved into the 160s. Patient without measurable neuro symptoms at this point in time. He is able to ambulate without any dizziness or ataxia. Multiple causes of chest pain considered including MA, PE, pneumothorax, pneumonia, aortic dissection, and pleurisy. Patient reports no radiation, no diaphoresis, no provocation with exertion, and no vomiting. HTN considered a possible etiology of the symptoms as symptoms have improved along with BP. Extensive discussion with patient and son at the bedside, return precautions discussed and questions answered to their apparent satisfaction Discharge Plan Departure Patient Disposition: Home Clinical Impression: Hypertension Instructions: Essential Hypertension Activity Restrictions/Additional Instructions: *You have been diagnosed with [hypertension, as we discussed history and physical exam as well as labs, EKGs and imaging are very reassuring and there is no evidence of heart attack, electrolyte abnormality, kidney issue or stroke. *What to do: *Please continue to take your regular medications as directed. [ ] New medication prescriptions sent to your pharmacy: [ ] [ ] New medication written as a paper prescription [x ] No new medications given *Please follow up with your primary care provider in 2-3 days, call for an appointment. Let them know you were seen in the Emergency Department and that we ask that you be seen in follow up. We will electronically transmit a record of today's note if your PCP is in our system *If you do not have a primary care provider please contact the [facility] Resource line at [phone]. They will ask some questions about your medical history and help get you set up with a doctor in the community. *Return to Emergency Department if you should have any new, worsening or concerning symptoms, such as [fever greater than 101 F, shaking chills, worsening pain, persistent vomiting or other bothersome symptoms] Prescriptions: No Action aspirin [Adult Aspirin Regimen] 81 mg tablet,delayed release (DR/EC) 81 mg PO DAILY 0RF losartan 25 mg tablet 25 mg PO DAILY 0RF atorvastatin 10 mg tablet 10 mg PO DAILY 0RF
[2022-03-06 16:49] LABS: Add Manual Diff / Slide Review NO; Basophils Absolute Auto 0 /uL (0-100); Basophils Percent Auto 0.5 % (0-2); Eosinophils Absolute Auto 0 /uL (0-450); Hematocrit 40.1 % (41-53); Hemoglobin 13.7 g/dL (13.5-17.5); Lymphocytes Absolute Auto 800 /uL (1100-4500); Mean Corpuscular Hemoglobin 30.4 PG (26-34); Mean Corpuscular Volume 89.4 fL (80-100); Monocytes Absolute Auto 200 /uL (0-900); Neutrophils Absolute Auto 3500 /uL (1500-7000); Neutrophils Percent Auto 76.5 % (50-75); Platelet Count 148 X10^3/uL (150-400); Red Blood Cell Count 4.49 X10^6/uL (4.5-5.9); Red Cell Distribution Width 13.3 % (11.6-14.8); White Blood Cell Count 4.6 X10^3/uL (4.5-11.0)
[2022-03-06 16:57] LABS: Alanine Aminotransferase 31 IU/L (<50); Albumin 4.5 g/dL (3.5-5.0); Albumin Globulin Ratio 1.5 (1.0-2.8); Alkaline Phosphatase 74 U/L (38-126); Aspartate Aminotransferase 34 IU/L (17-59); BUN Creatinine Ratio 20.5 (6-22); Blood Urea Nitrogen 18 mg/dL (9-20); Calcium 9.3 mg/dL (8.4-10.2); Carbon Dioxide 25 mmol/L (22-32); Chloride 108 mmol/L (98-107); Creatine Kinase 327 U/L (55-170); Estimated Glomerular Filt Rate > 60 mL/min (>60); Glucose 110 mg/dL (80-110); HEMOLYSIS < 15 (0-50); Lipase 64 U/L (23-300); Potassium 4.1 mmol/L (3.4-5.1); Sodium 139 mmol/L (137-145); Total Protein 7.5 g/dL (6.3-8.2)
[2022-03-06 17:09] LABS: Troponin I < 0.012 ng/mL (0.01-0.034)
[2022-03-06 17:13] LABS: CKMB % Relative Index 1.1 % (1.5-5.0); Creatine Kinase MB 3.55 ng/mL (<2.37)
--- NOTE | 2022-03-06 20:15 | DI.CT.S_ITS ---
PROCEDURE: CT HEAD/BRAIN WO CON INDICATIONS: tingling bilaterally with HTN TECHNIQUE: Noncontrast 4.5 mm thick angled axial sections acquired from the foramen magnum to the vertex, with coronal and sagittal reformats. For radiation dose reduction, the following was used: automated exposure control, adjustment of mA and/or kV according to patient size. COMPARISON: MR, MR STROKE, 04/12/2020, 10:13. [facility], CT, CT HEAD/BRAIN WO CON, 04/11/2020, 21:23. FINDINGS: Image quality: Excellent. CSF spaces: Basal cisterns are patent. No extra-axial fluid collections. The ventricles are symmetric in size and shape. Brain: No intracranial hemorrhage, mass, or mass effect. There is a small focal hypodensity within the right paracentral region of the saadia which is new compared to the prior CT study but corresponds to a small lacunar infarct seen on the prior MRI. There are subcortical, periventricular and deep white matter hypodensities consistent with mild chronic small vessel ischemic changes. The manning-white matter junction appears preserved. There is intracranial internal carotid artery atherosclerosis. Skull and face: Calvarium and visualized facial bones are intact, without suspicious lesions. Sinuses: Visualized sinuses and mastoids are clear. IMPRESSION: 1. No acute intracranial abnormality. 2. Sequelae of a prior lacunar infarct in the right saadia demonstrated as seen on the prior MRI. 3. Mild chronic white matter small vessel ischemic changes. Dictated by: Rufus Ordaz M.D. on 03/06/2022 at 20:47 Approved by: Rufus Ordaz M.D. on 03/06/2022 at 20:54
[2022-03-06 20:18] LABS: Troponin I < 0.012 ng/mL (0.01-0.034)
[2022-03-06 21:33] VITALS: BP 183/84; PULSE 55; RESP 17; O2SAT 100
[2022-03-06 21:34] VITALS: BP 169/88; PULSE 58; RESP 16; O2SAT 100
--- NOTE | 2022-03-06 21:43 | PC.NURSE ---
Seen at PCP in [place] today, driving home felt numbness and tingling in fingers, legs and lips. Reports pressure/tension in upper back and chest. PCP increased blood pressure medications today. Neurologically intact, Neg Fast Exam.
[2022-03-06 23:02] VITALS: BP 172/93; BP 178/91; BP 183/100; PULSE 60; PULSE 62; RESP 16; O2SAT 99
[2022-03-07 00:32] VITALS: BP 165/79; PULSE 49; RESP 16; O2SAT 99
--- NOTE | 2022-03-07 00:41 | PC.NURSE ---
Hydralazine held bp 165/79 Dr Zavala aware. Patient reports feeling well overall some bilateral numbness and tingling to finger tips bilaterally.
[2022-03-07 01:23] VITALS: BP 185/66; PULSE 49; RESP 12; O2SAT 99
== END 2022-03-07 01:24 | disposition home or self-care (01) ==
PROVIDERS: Emergency Medicine; Emergency Provider Emergency Medicine
DX: I10 Essential (primary) hypertension (principal); R07.9 Chest pain, unspecified
CPT/HCPCS: 36415; 70450; 71045; 80053; 81003; 82550; 82553; 83690; 84484; 85025; 93005; 93010; 99283

== ENCOUNTER → 2024-10-19 18:55 | Outpatient (CLI) | payer OTHER, SELFPAY ==
--- NOTE | 2024-10-19 19:00 | DI.RAD.S_ITS ---
PROCEDURE: XR KNEE LT 3V INDICATIONS: Left knee pain TECHNIQUE: 3 views of the knee were acquired. COMPARISON: None. FINDINGS: Bones: No fractures or dislocations. Left knee arthroplasty in place. The hardware appears intact without surrounding fracture or lucency. No suspicious bony lesions. Soft tissues: Small joint effusion. No suspicious soft tissue calcifications. IMPRESSION: Left knee arthroplasty without evidence of complication. No acute osseous abnormalities. Dictated by: Erich Sawyer M.D. on 10/20/2024 at 11:29 Approved by: Erich Sawyer M.D. on 10/20/2024 at 11:30
== END ==
LOC: DI 18:59
PROVIDERS: Referring Provider Nurse Practitioner Family; Visit Provider Nurse Practitioner Family
DX: S86.912A Strain of unspecified muscle(s) and tendon(s) at lower leg level, left leg, initial encounter (principal); X58.XXXA Exposure to other specified factors, initial encounter; Z96.652 Presence of left artificial knee joint; M25.462 Effusion, left knee
CPT/HCPCS: 73562